=== PATIENT | male | born 1945 | race Caucasian/White ===

== ENCOUNTER → 2023-08-22 06:16 | Day surgery (SDC) | payer MEDICARE, OTHER, SELFPAY ==
[2023-08-22 07:51] VITALS: BMI 32.8
[2023-08-22 08:07] VITALS: BP 148/90
[2023-08-22 09:50] VITALS: BP 104/65
[2023-08-22 10:00] VITALS: BP 114/74
== END ==
LOC: SDS 06:16
PROVIDERS: ATTENDING PHYSICIAN Internal Medicine Gastroenterology
DX: D12.2 Benign neoplasm of ascending colon (principal); D17.79 Benign lipomatous neoplasm of other sites; K57.30 Diverticulosis of large intestine without perforation or abscess without bleeding; K64.0 First degree hemorrhoids
CPT/HCPCS: 45390; 88305

== ENCOUNTER → 2023-08-29 06:23 | Outpatient (REF) | payer MEDICARE, OTHER, SELFPAY ==
[2023-08-29 09:55] LABS: % Basophils 0.5 % (0-2); % Eosinophils 2.6 % (0-6); % Immature Granulocytes 0.3 % (0-0.5); % Lymphocytes 38.4 % (20.5-51.1); % Monocytes 11.1 % (1.7-9.3); % Neutrophils 47.1 % (42.2-75.2); Absolute Basophils 0.1 10^3/uL (0-0.2); Absolute Eosinophils 0.3 10^3/uL (0-0.7); Absolute Lymphocytes 4.1 10^3/uL (1.2-3.4); Absolute Monocytes 1.2 10^3/uL (0.1-0.6); Hematocrit 34.8 % (39.0-52.0); Hemoglobin 11.3 g/dL (13.0-18.0); Mean Corp Hgb Conc. 32.5 g/dL (33.0-37.0); Mean Corpuscular Hgb 28.8 pg (27.0-31.0); Mean Corpuscular Volume 88.5 fL (80.0-94.0); Mean Platelet Volume 10.9 fL (7.4-10.4); Nucleated Red Blood Cells % 0 % (-); Platelet Count 203 10^3/uL (130-400); Red Blood Cell Count 3.93 10^6/uL (4.70-6.10); Red Cell Dist. Width 15.5 % (11.5-14.5); White Blood Cell Count 10.6 10^3/uL (4.8-10.8)
== END ==
LOC: HWLAB 06:23
PROVIDERS: ATTENDING PHYSICIAN Internal Medicine Pulmonary Disease; FAMILY PHYSICIAN Internal Medicine
DX: J67.9 Hypersensitivity pneumonitis due to unspecified organic dust (principal); Z51.81 Encounter for therapeutic drug level monitoring
CPT/HCPCS: 36415; 85025

== ENCOUNTER → 2023-09-01 07:00 | Outpatient (REF) | payer MEDICARE, OTHER, SELFPAY ==
[2023-09-01 09:56] LABS: ALT (SGPT) 29 U/L (0-50); AST (SGOT) 33 U/L (17-59); Albumin 3.8 g/dl (3.5-5.0); Alkaline Phosphatase 109 U/L (38-126); Direct Bilirubin 0.4 mg/dl (0.0-0.4); Total Bilirubin 0.8 mg/dl (0.2-1.3); Total Protein 6.9 g/dl (6.3-8.2)
== END ==
LOC: HWLAB 07:00
PROVIDERS: ATTENDING PHYSICIAN Internal Medicine Pulmonary Disease; FAMILY PHYSICIAN Internal Medicine
DX: Z51.81 Encounter for therapeutic drug level monitoring (principal)
CPT/HCPCS: 36415; 80076

== ENCOUNTER → 2023-11-27 09:30 | Outpatient (REF) | payer MEDICARE, OTHER, SELFPAY ==
[2023-11-27 10:03] LABS: % Basophils 0.3 % (0-2); % Eosinophils 1.7 % (0-6); % Immature Granulocytes 0.5 % (0-0.5); % Lymphocytes 25.3 % (20.5-51.1); % Monocytes 10.1 % (1.7-9.3); % Neutrophils 62.1 % (42.2-75.2); Absolute Eosinophils 0.2 10^3/uL (0-0.7); Absolute Immature Granulocytes 0.1 10^3/uL (0-0.05); Absolute Lymphocytes 2.8 10^3/uL (1.2-3.4); Absolute Monocytes 1.1 10^3/uL (0.1-0.6); Absolute Neutrophils 6.8 10^3/uL (1.4-6.5); Hematocrit 38.8 % (39.0-52.0); Hemoglobin 12.7 g/dL (13.0-18.0); Mean Corp Hgb Conc. 32.7 g/dL (33.0-37.0); Mean Corpuscular Volume 91.5 fL (80.0-94.0); Mean Platelet Volume 10.6 fL (7.4-10.4); Nucleated Red Blood Cells % 0 % (-); Platelet Count 177 10^3/uL (130-400); Red Blood Cell Count 4.24 10^6/uL (4.70-6.10); Red Cell Dist. Width 13.8 % (11.5-14.5); White Blood Cell Count 10.9 10^3/uL (4.8-10.8)
[2023-11-27 12:04] LABS: ALT (SGPT) 25 U/L (0-50); AST (SGOT) 35 U/L (17-59); Alkaline Phosphatase 107 U/L (38-126); Blood Urea Nitrogen 25 mg/dl (9-20); Calcium 9.2 mg/dl (8.4-10.2); Carbon Dioxide 32 mmol/L (22-30); Chloride 99 mmol/L (98-107); Glucose 86 mg/dl (70-99); HDL Cholesterol 50 mg/dl; LDL Cholesterol, Calculated 102 mg/dl; Potassium 4.3 mmol/L (3.5-5.1); Sodium 138 mmol/L (135-145); Total Bilirubin 0.9 mg/dl (0.2-1.3); Total Cholesterol 172 mg/dl (50-199); Total Protein 6.9 g/dl (6.3-8.2); Triglyceride 100 mg/dl (10-149); Very Low Density Lipoprotein 20 mg/dl (0-30); eGFR > 60.00
[2023-11-27 12:30] LABS: PSA, Total - Screen 3.15 ng/ml (0.0-4.0); TSH Reflex To Free T4 3.58 uIU/ml (0.47-4.68)
== END ==
LOC: REG 09:30
PROVIDERS: ATTENDING PHYSICIAN Internal Medicine
DX: N40.1 Benign prostatic hyperplasia with lower urinary tract symptoms (principal); E03.9 Hypothyroidism, unspecified; E78.5 Hyperlipidemia, unspecified; I10 Essential (primary) hypertension; Z12.5 Encounter for screening for malignant neoplasm of prostate
CPT/HCPCS: 36415; 80053; 80061; 84443; 85025; G0103

== ENCOUNTER 2024-01-22 20:55 | Inpatient (IN) | payer MEDICARE, OTHER, SELFPAY ==
[2024-01-22] VITALS (8 sets, daily range): BP systolic 102–156; BP diastolic 88–97
[2024-01-22 17:33] LABS: % Basophils 0.3 % (0-2); % Eosinophils 0.7 % (0-6); % Immature Granulocytes 0.4 % (0-0.5); % Lymphocytes 22.4 % (20.5-51.1); % Monocytes 7.9 % (1.7-9.3); % Neutrophils 68.3 % (42.2-75.2); Absolute Eosinophils 0.1 10^3/uL (0-0.7); Absolute Immature Granulocytes 0.1 10^3/uL (0-0.05); Absolute Lymphocytes 2.5 10^3/uL (1.2-3.4); Absolute Monocytes 0.9 10^3/uL (0.1-0.6); Absolute Neutrophils 7.6 10^3/uL (1.4-6.5); Hematocrit 37.5 % (39.0-52.0); Hemoglobin 12.5 g/dL (13.0-18.0); Mean Corp Hgb Conc. 33.3 g/dL (33.0-37.0); Mean Corpuscular Hgb 29.7 pg (27.0-31.0); Mean Corpuscular Volume 89.1 fL (80.0-94.0); Mean Platelet Volume 10.6 fL (7.4-10.4); Nucleated Red Blood Cells % 0 % (-); Platelet Count 173 10^3/uL (130-400); Red Blood Cell Count 4.21 10^6/uL (4.70-6.10); Red Cell Dist. Width 13.7 % (11.5-14.5); White Blood Cell Count 11.1 10^3/uL (4.8-10.8)
--- NOTE | 2024-01-22 17:46 | ED.GENMED ---
History of Present Illness
General
Chief Complaint: Rectal Bleeding
Source: patient
Exam Limitations: none
Time Seen by Provider: 01/22/24 17:33
History of Present Illness
History of Present Illness:
See MDM
Past History
Past History
ED Past Medical History: HTN, Hypothyroidism and Other (Gout, Interstitial lung disease)
ED Past Surgical History: Appendectomy, Cholecystectomy and Other (Bilateral cataracts)
Social History
Tobacco: Non-smoker
Alcohol: None
Personal:
Living: with family
Employment: Employed
Family History
Family History: Hypertension
Phy Exam
Physical Exam
Physical Exam:
See MDM
Course
Orders/Labs/Results
Orders:
Orders
01/22/24 17:22
Type+Screen Urgent
Complete Blood Count/With Diff Urgent
Comprehensive Metabolic Panel Urgent
01/22/24 17:46
CT Angio Abd/Pelvis w/wo IV [CT Abd/pelvis Angio W/wo Iv] Urgent
Comment:
Reason For Exam: brisk rectal bleeding
01/22/24 19:17
PTT Urgent
Prothrombin Time Urgent
Tranexamic Acid 1000 mg/100 ml [Tranexamic Acid] 1,000 mg in 100 ml IV ONCE
Abnormal Lab Results
01/22/24 01/22/24
17:22 19:17
WBC 11.1 H 10^3/uL
(4.8-10.8)
RBC 4.21 L 10^6/uL
(4.70-6.10)
Hgb 12.5 L g/dL
(13.0-18.0)
Hct 37.5 L %
(39.0-52.0)
MPV 10.6 H fL
(7.4-10.4)
Abs Immat Gran (auto) 0.1 H 10^3/uL
(0-0.05)
Absolute Neuts (auto) 7.6 H 10^3/uL
(1.4-6.5)
Absolute Monos (auto) 0.9 H 10^3/uL
(0.1-0.6)
PT 15.7 H Sec
(11.4-14.6)
BUN 24 H mg/dl
(9-20)
Glucose 106 H mg/dl
(70-99)
01/22/24 17:22
01/22/24 17:22
Vital Signs
Initial and Last Documented VS:
Initial Vital Signs
Pulse Resp BP Pulse Ox
102 28 152/89 96
01/22/24 17:13 01/22/24 17:13 01/22/24 17:13 01/22/24 17:13
Last Documented Vital Signs
Temp Pulse Resp BP Pulse Ox
98.2 F 95 31 156/95 99
01/22/24 17:30 01/22/24 19:31 01/22/24 19:31 01/22/24 19:31 01/22/24 19:31
MDM/Problems Addressed
Differential Diagnosis Includes:
HPI and MDM Narrative:
78-year-old male presenting for evaluation of bright red rectal bleeding. Patient had developed approximately 6 episodes of bright red rectal bleeding. At this point, patient is noticing just blood. He denies being on blood thinners. He denies
abdominal pain. Patient had a history of bleeding in the past and it was believed to be hemorrhoids. He started using the hemorrhoid cream with no relief
On exam, patient has a soft and nontender abdomen. The external rectal exam within normal limits. Patient did have an episode of rectal bleeding when he came back to the room and he did show me in the bathroom.
Given the multiple episodes of bleeding, will obtain CTA A/P. Will ultimately admit
Physical exam
General: Well appearing and non-toxic
HEENT: protecting airway
Neck: appears supple
CV: No evidence of cyanosis
Resp: No accessory muscle use
Abd: Non-distended. Soft and nontender
Rectal: External exam within normal limits
Extremities: No deformities
Neuro: alert
Psych: Normal affect
Skin: Intact
Problems Addressed including Acute and Chronic Conditions affecting care:
1. Bright red rectal bleeding
Acuity: acute
Prognosis: stable
Details: Patient is on blood thinners. Hemoglobin stable. Will obtain CTA to rule out any active bleeding versus diverticulosis
Updates
644 PM radiology indicating acute hemorrhage in the proximal sigmoid
6:50 PM interventional radiology made aware
Patient prophylactically signed consent for blood transfusion if needed
Patient given 1 g of IV tranexamic acid
7:20 PM IR did evaluate CT and there is no plan for intervention. At this time, GI made aware
Differential Diagnosis (but not limited to): Diverticulosis, colitis, neoplasm
Testing considered: Stool culture
Drug therapy (if applicable): OTC meds, please see d/c instruction regarding Rx drugs
Amount and/or Complexity of Data Reviewed
Clinical info obtained from: Patient
External data reviewed: N/A
Labs I independently reviewed (but not limited to): Hemoglobin stable
Radiology: The CT scan was personally and independently reviewed. In addition, official CT report reviewed.
Pulse Ox: not hypoxic
EKG independently reviewed: N/A
Color Maker Formulator: N/A
Critical Care: The high probability of a clinically significant, sudden or life threatening deterioration of the gastroenterology system(s) required my full and direct attention, intervention and personal management. The aggregate critical care time
was 33 minutes. This time is in addition to time spent performing reported procedures but includes the following:
[x] Data Review and interpretation
[x] Patient assessment and monitoring of vital signs
[x] Documentation
[x] Medication orders and management
Risk of Complication:
Social Determinants of health: Good social support
Discussed with other providers: Interventional radiologist, gastroenterology, hospitalist
Escalation of Care includes Admit/Obs: Given the diverticulosis with hemorrhage, will admit
Occasional wrong word or 'sound a like' substitutions may have occurred due to the inherent limitations of voice recognition software. Read the chart carefully and recognize, using context, where substitutions have occurred.
*Critical Care Note
Total Time (30-74mins, 75-104mins- exclusive of procedures): 33 min
ED Attending Note
-
Portions of this chart may have been created with voice recognition software.� Occasional wrong word or��sound alike� substitutions may have occurred due to the inherent limitations of voice recognition software.
Discharge Plan
Departure
Patient Disposition: Admit
Date of Disposition: 01/22/24
Time of Disposition: 19:44
Admit to: Telemetry
Presentation/result/management discussed w/ accepting MD/DO: Hospitalist
Discharge Problem:
Diverticulosis of colon with hemorrhage
Prescriptions:
No Action
allopurinol 100 MG tablet
100 mg PO DAILY
eplerenone [Inspra] 50 MG tablet
50 mg PO BID
acetaminophen [Tylenol] 325 mg Tablet
650 mg PO Q6H PRN (Reason: mild pain)
therapeutic multivitamin Tablet
1 tab PO DAILY
levothyroxine 25 mcg Tablet
25 mcg PO DAILY
furosemide 20 mg Tablet
20 mg PO DAILY
finasteride 5 mg Tablet
5 mg PO DAILY
ezetimibe 10 mg Tablet
10 mg PO DAILY
coenzyme Q10 [CoQ-10] 100 mg Capsule
100 mg PO DAILY
cholecalciferol (vitamin D3) 50 mcg (2,000 unit) Tablet
50 mcg PO DAILY
vitamin K2 100 mcg Capsule
100 mcg PO DAILY
L-Methylfolate
400 mcg PO DAILY
aspirin 81 mg Tablet,Delayed Release (Dr/Ec)
81 mg PO DAILY
terazosin 2 mg Capsule
2 mg PO HS
vitamin B complex Tablet
1 tab PO DAILY
Ofev 100 mg Capsule
100 mg PO Q12H
hydrocortisone [Procto-Med HC] 2.5 % cream with perineal applicator
1 applic [place] DAILYPRN PRN (Reason: hemorrhoids)
Referrals:
Estephania Saldaña MD [Family Provider] -
Interventions
Interventions:
*Risk Screen - Suicide Last Done: 01/22/24 17:20
*General Assessment Last Done: 01/22/24 17:20
*Neglect/Abuse Screening Last Done: 01/22/24 17:20
ED- Fall Risk Assessment Last Done: 01/22/24 17:59
*ED COVID-19 Vaccine History Last Done: 01/22/24 17:20
QB-Iraeyr-Pnrlldlpal Assessment Last Done: 01/22/24 17:30
ED- Cardiac Assessment Last Done: 01/22/24 17:30
ED- Pulmonary Assessment Last Done: 01/22/24 17:30
Discharge Date and Time
Print Language: [place]
[2024-01-22 17:50] LABS: ALT (SGPT) 26 U/L (0-50); AST (SGOT) 36 U/L (17-59); Albumin 3.8 g/dl (3.5-5.0); Alkaline Phosphatase 103 U/L (38-126); Blood Urea Nitrogen 24 mg/dl (9-20); Calcium 8.8 mg/dl (8.4-10.2); Carbon Dioxide 25 mmol/L (22-30); Chloride 103 mmol/L (98-107); Glucose 106 mg/dl (70-99); Potassium 4.1 mmol/L (3.5-5.1); Sodium 143 mmol/L (135-145); Total Bilirubin 0.8 mg/dl (0.2-1.3); Total Protein 6.6 g/dl (6.3-8.2); eGFR > 60.00
[2024-01-22] MEDS: TRANEXAMIC ACID 100 IV (19:20)
[2024-01-22 19:32] LABS: INR 1.24; PT 15.7 Sec (11.4-14.6)
[2024-01-22 19:33] LABS: APTT 31.9 Sec (23.4-35.0)
--- NOTE | 2024-01-22 20:04 | HPS.HSE ---
Family Physician
-
Family Physician: Estephania Saldaña
Chief Complaint
-
rectal bleeding
History of Present Illness
Mr. Eyad Pires is a 78 yo man with hx ILD, pulmonary hypertension and chronic hypoxemia, HTN, hypothyroidism presents to the ER with rectal bleeding - bright red blood.
Bleeding started this morning. He had 6 episodes at home and 3 here in the ER, going at least once per hour. No abdominal pain. No nausea/vomiting. He had a similar episode one year ago 2022 s/p colonoscopy with e/o past bleeding from
diverticular opening in sigmoid colon.
No chest pain or shortness of breath.
He is on chronic O2 for ILD baseline 6L (4 when sleeping and 8 with exertion).
Medical History
Past Medical History
Past Medical History: Reports Other
Additional Past Medical History:
ILD
Pulmonary Hypertension
Chronic Hypoxemic Respiratory Failure
Hypertension
Hypothyroidism
BPH
Past Surgical History: Reports Other
Additional Past Surgical History:
Appendectomy
Cholecystectomy
Cataracts
Prostate Biopsy
Social History
Tobacco: Non-smoker
Alcohol: None
Drug: None
Personal:
Living: With Family
Family History
Family History: Not pertinent
Allergies / Home Medications
Allergies reflects when Allergies were last updated in [employer].
Home Medications with original date entered in [employer]
Allergy/Medication List:
Allergies
Allergy/AdvReac Type Severity Reaction Status Date / Time
Sulfa (Sulfonamide Allergy Rash Verified 08/22/23 08:03
Antibiotics)
sulfamethoxazole Allergy Unknown Verified 08/22/23 08:03
trimethoprim Allergy Unknown Verified 08/22/23 08:03
Home Medications
allopurinol 100 mg tablet 100 mg PO DAILY Gout 05/11/11
eplerenone 50 mg tablet (Inspra) 50 mg PO BID Blood Pressure 05/11/11
L-Methylfolate 400 mcg PO DAILY Supplement 04/23/23
acetaminophen 325 mg tablet (Tylenol) 650 mg PO Q6H PRN mild pain 04/23/23
cholecalciferol (vitamin D3) 50 mcg (2,000 unit) tablet 50 mcg PO DAILY Supplement 04/23/23
coenzyme Q10 100 mg capsule (CoQ-10) 100 mg PO DAILY Supplement 04/23/23
ezetimibe 10 mg tablet 10 mg PO DAILY High Cholesterol 04/23/23
finasteride 5 mg tablet 5 mg PO DAILY prostate issue 04/23/23
furosemide 20 mg tablet 20 mg PO DAILY Fluid Retention/Swelling 04/23/23
levothyroxine 25 mcg tablet 25 mcg PO DAILY Thyroid 04/23/23
therapeutic multivitamin 1 tab PO DAILY Supplement 04/23/23
vitamin K2 100 mcg capsule 100 mcg PO DAILY Supplement 04/23/23
aspirin 81 mg tablet,delayed release 81 mg PO DAILY 01/22/24
hydrocortisone 2.5 % topical cream with perineal applicator (Procto-Med HC) 1 applic IN DAILYPRN PRN hemorrhoids 01/22/24
nintedanib 100 mg capsule (Ofev) 100 mg PO Q12H 01/22/24
terazosin 2 mg capsule 2 mg PO HS 01/22/24
vitamin B complex 1 tab PO DAILY 01/22/24
Review of Systems
-
History Source: Patient
A 12 point ROS was completed and negative except as noted: Yes
Physical Exam
Vital Signs
Vital Signs
Temp Pulse Resp BP Pulse Ox
98.2 F 96 35 156/95 98
01/22/24 17:30 01/22/24 19:45 01/22/24 19:45 01/22/24 19:31 01/22/24 19:45
Physical Exam
General: No Apparent Distress
Respiratory: Rales
Cardiac: S1/S2 and Regular Rhythm
GI: Soft and Non Tender
Musculoskeletal: No Edema
Skin: Warm and Dry; No Rash
Neuro: AO x 3
Psych: Calm
Laboratory Results
-
01/22/24 17:22
01/22/24 17:22
Laboratory Results
PT 15.7 Sec (11.4-14.6) H 01/22/24 19:17
INR 1.24 01/22/24 19:17
APTT 31.9 Sec (23.4-35.0) 01/22/24 19:17
Total Bilirubin 0.8 mg/dl (0.2-1.3) 01/22/24 17:22
AST 36 U/L (17-59) 01/22/24:
ALT 26 U/L (0-50) 01/22/24 17:22
Alkaline Phosphatase 103 U/L (38-126) 01/22/24 17:22
Data Reviewed
-
Diagnostic Radiology: Report Reviewed by me
Lab Data: Labs Reviewed by me
Impression/Plan
-
Mr. Eyad Pires is a 78 yo man with hx ILD, pulmonary hypertension and chronic hypoxemia, HTN, hypothyroidism presents to the ER with rectal bleeding.
Triage VS: T 98.2, P 102, RR 28, BP 152/89, SpO2 96%
LABS: WBC 11.1, Hg 12.5, PLT 173, Na 143, K+ 4.1, BUN 24, Cr 1.1, Glucose 106, liver enzymes WNL
Abdomen/Pelvis CT
IMPRESSION:
1). There is acute gastrointestinal hemorrhage in the proximal sigmoid colon
2). Diverticuli are present throughout the colon with no CT evidence of diverticulitis
3). Atherosclerosis.
4). Moderately extensive subpleural interstitial fibrosis at both lung bases.
5). Prostatomegaly
6). Bilateral renal cysts
7). Cholecystectomy
8). 2.5 cm umbilical hernia which does not contain bowel
MAR: Tranexamic acid
Acute lower GI Bleed with CTA positive for acute hemorrhage in proximal sigmoid colon
-case discussed with GI and IR and plan is for embolization this evening
-keep NPO
-admit to IMU post-op
-repeat Hg now and trend q6 hours; transfuse PRN
-hold HEARING SPECIALIST asa, lasix, eplerenone
Pulmonary Hypertension
ILD
Chronic Hypoxic Respiratory Failure on 6L
-patient is on Ofev PO q 12H at home
Hypothyroidism
-HEARING SPECIALIST Synthroid
BPH
-HEARING SPECIALIST Finasteride
-HEARING SPECIALIST Terazosin
DVT PPx SCD
FULL CODE
76 minutes spent on patient care
[2024-01-22 21:03] LABS: Hemoglobin 11.3 g/dL (13.0-18.0)
--- NOTE | 2024-01-22 23:12 | W.PN.UPDATE ---
Update Note
Progress Note Update
Procedure: BEBA arteriogram
- BEBA arteriogram performed with attention paid to the descending and sigmoid based on CTA findings
- Good image quality; neg for active bleeding
- Pt HDS throughout, slightly hypertensive.
- 5F Mynx closure device used.
- Pt tolerate well. updated.
[2024-01-23] VITALS (32 sets, daily range): BP systolic 98–149; BP diastolic 62–89; PULSE 86–126
[2024-01-23] MEDS: NSS 1000 IV ×2 (00:22→12:36)
--- NOTE | 2024-01-23 00:29 | PTCARENOTE ---
Received patient from IR, got report via RN. Pt post arteriogram through the right femoral artery. No signs of bleeding. Pt denies any pain at this time. Surgical dressing clean, dry, and intact. Pulses present upon palpation bilateral pedal. AAOx3,
calm, and pleasant. Pt is to be lying flat for 3 hours. Pt has call burrell within reach, rings appropriately.
[2024-01-23 04:55] LABS: Hematocrit 29.3 % (39.0-52.0); Hemoglobin 9.9 g/dL (13.0-18.0); Mean Corp Hgb Conc. 33.8 g/dL (33.0-37.0); Mean Corpuscular Hgb 31.1 pg (27.0-31.0); Mean Corpuscular Volume 92.1 fL (80.0-94.0); Platelet Count 144 10^3/uL (130-400); Red Blood Cell Count 3.18 10^6/uL (4.70-6.10); Red Cell Dist. Width 13.5 % (11.5-14.5); White Blood Cell Count 9.6 10^3/uL (4.8-10.8)
[2024-01-23 05:21] LABS: Blood Urea Nitrogen 23 mg/dl (9-20); Calcium 8.5 mg/dl (8.4-10.2); Carbon Dioxide 25 mmol/L (22-30); Chloride 106 mmol/L (98-107); Estimated Creatinine Clearance 76 ml/min; Glucose 97 mg/dl (70-99); Potassium 4.1 mmol/L (3.5-5.1); Sodium 142 mmol/L (135-145); eGFR > 60.00
[2024-01-23] MEDS: SYNTHROID 25 MCG PO (05:30)
[2024-01-23 06:09] LABS: Hepatitis C Antibody Negative (Negative)
[2024-01-23] MEDS: ZYLOPRIM 100 MG PO (08:12)
--- NOTE | 2024-01-23 09:33 | W.PN.GENERIC ---
Assessment / Plan
-
78 yo male with LGIB and negative arteriogram in IR yesterday. One episode of GI bleed since arteriogram yesterday
Continue to trend H&H
I spent 40 minutes reviewing results of the procedure and expected outcomes with the patient, reviewing medical records, laboratory studies and pertinent imaging
Physician Progress Note
Subjective
This is a 78 yo male with PMHx significant for ILD, pulmonary hypertension and chronic hypoxemia on chronic home O2 6L, HTN, and hypothyroidism who noted he started with rectal bleeding yesterday morning. He had multiple episodes at home before
coming to the ER. He had 3 episodes in the ER. He has a history of GI bleed last April and had a colonoscopy. He underwent IR arteriogram yesterday without active bleed identified. He feels well today. He rport one episode of rectal bleding
this morning but not as bad as yesterday. He denies abdominal pain, nausea, vomiting, chest pain, palpitations or SOB
Past Medical History:
ILD, Pulmonary Hypertension, O2 dependent Chronic Hypoxemic Respiratory Failure, Hypertension, Hypothyroidism, BPH
Past Surgical History:
Appendectomy, Cholecystectomy, Cataracts, Prostate Biopsy
Social History
Tobacco: Non-smoker
Alcohol: Denies
Personal: and lives with his wifey
Allergies
Allergy/AdvReac Type Severity Reaction Status Date / Time
Sulfa (Sulfonamide Allergy Rash Verified 08/22/23 08:03
Antibiotics)
sulfamethoxazole Allergy Unknown Verified 08/22/23 08:03
trimethoprim Allergy Unknown Verified 08/22/23 08:03
Home Medications
allopurinol 100 mg tablet 100 mg PO DAILY, eplerenone 50 mg tablet (Inspra) 50 mg PO BID, L-Methylfolate 400 mcg PO DAILY, acetaminophen 325 mg tablet (Tylenol) 650 mg PO Q6H PRN, cholecalciferol (vitamin D3) 50 mcg (2,000 unit) tablet 50 mcg PO
DAILY, coenzyme Q10 100 mg capsule (CoQ-10) 100 mg PO DAILY Supplement, ezetimibe 10 mg tablet 10 mg PO DAILY, finasteride 5 mg tablet 5 mg PO DAILY, furosemide 20 mg tablet 20 mg PO DAILY, levothyroxine 25 mcg tablet 25 mcg PO DAILY, therapeutic
multivitamin 1 tab PO DAILY, vitamin K2 100 mcg capsule 100 mcg PO DAILY, aspirin 81 mg tablet,delayed release 81 mg PO DAILY, hydrocortisone 2.5 % topical cream with perineal applicator (Procto-Med HC) 1 applic MS, nintedanib 100 mg capsule
(Ofev) 100 mg PO Q12H, terazosin 2 mg capsule 2 mg PO HS, vitamin B complex 1 tab PO DAILY 01/22/24
Objective
Vital Signs
Temp Pulse Resp BP Pulse Ox
97.9 F 114 20 98/62 99
01/23/24 07:55 01/23/24 07:45 01/23/24 07:45 01/23/24 07:38 01/23/24 01:31
Lab Results
01/23/24 04:30
This is a WNWD 78 yo male in NAD lying in bed. Color is good. Skin is WD. Neck is supple. Heart is regular. Lungs are CTA. Abdomen is soft, round, NT with bowel sounds present. Right groin dressing CDI. No hematoma or pulsatile mass.
Palpable inguinal and pedal pulses. No CCE.
--- NOTE | 2024-01-23 09:48 | CON.GI ---
Consultation
-
Date/Time Consultation Requested: 01/22/2024, 20:40
Date/Time Consultation Performed: 01/23/2024, 9:45 AM
Requesting Provider: Dr. Vale Hernandez
Performing Provider: Dr. Raciel Bear
Reason for Consultation: GI Bleed
Medical History
Chief Complaint / HPI
Chief Complaint: Rectal bleeding
History of Present Illness:
Mr. Pires is a 78 y.o male with past medical history of HTN, hypothyroidism, pulmonary HTN, ILD, chronic hypoxemic respiratory failure, hx of CCY, adenomatous colon polyps, and hx of prior diverticular GI bleeding (04/2023) who presented to the
ED with hematochezia.
Patient states he was in his USOH until yesterday morning when he began to experience several episodes (up to 7 or 8) of large volume, painless, bright red blood and clots mixed with stool. Denies any abdominal discomfort, nausea or vomiting. Notes
very similar symptoms like this in the past back in April 2023 where he was admitted at and underwent a colonoscopy at that time which revealed diverticulosis in the left colon, transverse colon and hepatic flexure with old blood in the
sigmoid colon and also incidentally found to have a large colon adenomatous polyp in the proximal R colon (s/p eventual repeat colonoscopy with EMR 08/2023). Otherwise, he denies any further episodes of bleeding since that time. He is on daily ASA
81, but no other NSAIDs, antiplatelets or anticoagulants. Denies any symptoms of symptomatic anemia while at home- no worsening SOB, chest pain or lightheadedness. Given his ongoing episodes of painless hematochezia, he came to the ED for further
evaluation.
Recent Pertinent GI Studies:
Colonoscopy (for colon polyp) 08/22/2023- Impression:
- Hemorrhoids found on perianal exam.
- The examined portion of the ileum was normal.
- Medium-sized lipoma in the proximal ascending colon.
- One 17 mm polyp in the proximal ascending colon, removed with mucosal resection en bloc. Resected and retrieved (path with SSL). Treated with argon plasma coagulation (APC).
- Diverticulosis in the sigmoid colon, in the descending colon, at the hepatic flexure and in the ascending colon.
- Internal hemorrhoids.
- Mucosal resection was performed. Resection and retrieval were complete.
Colonoscopy (for rectal bleeding) 04/25/2023- Impression:
- Preparation of the colon was fair.
- Tortuous colon.
- One 15 to 20 mm polyp in the ascending colon. Biopsied (path w/ sessile serrated lesion)
- Moderate diverticulosis in the sigmoid colon, in the descending colon, at the splenic flexure, in the transverse colon and at the hepatic flexure. There was evidence of past bleeding from the diverticular opening.
- Internal hemorrhoids.
In the ED, patient was afebrile and HD-stable. Labs notable for BUN 24, Oxide Furnace Tender 1.1, nml LFTs, Hgb 12.5 and plts 173. CTA Abd/pelvis 01/21 (+) for acute GI hemorrhage in the proximal sigmoid colon and laguerre-diverticulosis without findings to suggest
diverticulitis along with other incidental findings. Had three additional episodes of painless hematochezia while in ED.
Taken for IR Angiography on 01/21 with (-) BEBA arteriogram without any active extravasation, no embolization performed.
Past Medical History
Past Medical History: Other (ILD, pulmonary HTN, chronic hypoxemic respiratory failure (on home O2), diverticular bleeds, adenomatous colon polyps, HTN, hypothyroidism, BPH)
Past Surgical History: Other (Appendectomy, CCY, cataracts, prostate biopsy)
Social History
Tobacco: Non-Smoker
Alcohol: None
Drug: None
Personal:
Family History
Family History: Other (Family hx of CRC (in father))
Allergies / Home Medications
Allergy/AdvReac Type Severity Reaction Status Date / Time
Sulfa (Sulfonamide Allergy Rash-'years Verified 01/22/24 21:35
Antibiotics) ago'
sulfamethoxazole Allergy Unknown Verified 08/22/23 08:03
trimethoprim Allergy 'patient Verified 01/22/24 21:35
denies'
�Medication �Instructions �Recorded
allopurinol 100 mg tablet 100 mg PO DAILY Gout 05/11/11
eplerenone 50 mg tablet (Inspra) 50 mg PO BID Blood Pressure 05/11/11
L-Methylfolate 400 mcg PO DAILY Supplement 04/23/23
acetaminophen 325 mg tablet 650 mg PO Q6H PRN mild pain 04/23/23
(Tylenol)
cholecalciferol (vitamin D3) 50 50 mcg PO DAILY Supplement 04/23/23
mcg (2,000 unit) tablet
coenzyme Q10 100 mg capsule 100 mg PO DAILY Supplement 04/23/23
(CoQ-10)
ezetimibe 10 mg tablet 10 mg PO DAILY High Cholesterol 04/23/23
finasteride 5 mg tablet 5 mg PO DAILY prostate issue 04/23/23
furosemide 20 mg tablet 20 mg PO DAILY Fluid 04/23/23
Retention/Swelling
levothyroxine 25 mcg tablet 25 mcg PO DAILY Thyroid 04/23/23
therapeutic multivitamin 1 tab PO DAILY Supplement 04/23/23
vitamin K2 100 mcg capsule 100 mcg PO DAILY Supplement 04/23/23
aspirin 81 mg tablet,delayed 81 mg PO DAILY 01/22/24
release
hydrocortisone 2.5 % topical cream 1 applic MA DAILYPRN PRN 01/22/24
with perineal applicator hemorrhoids
(Procto-Med HC)
nintedanib 100 mg capsule (Ofev) 100 mg PO Q12H 01/22/24
terazosin 2 mg capsule 2 mg PO HS 01/22/24
vitamin B complex 1 tab PO DAILY 01/22/24
Review of Systems
-
All other systems: A 12 pt ROS was Negative except as stated above in HPI
Vital Signs
Temp Pulse Resp BP Pulse Ox
97.9 F 114 20 98/62 99
01/23/24 07:55 01/23/24 07:45 01/23/24 07:45 01/23/24 07:38 01/23/24 01:31
Physical Exam
Exam
General: Well Developed, Well Nourished and No Apparent Distress
HEENT: Normocephalic, Anicteric and Moist Mucous Membranes
Respiratory: Clear and Other (Normal WOB on breathing on supplemental O2)
Cardiac: S1/S2 and Regular Rhythm
GI: Soft, Non Tender and Non Distended
Musculoskeletal: No Edema
Skin: Warm
Neuro: Awake, AO x 3 and Nonfocal/Grossly Intact
Psych: Calm
Results
WBC 9.6 10^3/uL (4.8-10.8) 01/23/24 04:30
Hgb 9.9 g/dL (13.0-18.0) L 01/23/24 04:30
Hct 29.3 % (39.0-52.0) L 01/23/24 04:30
MCV 92.1 fL (80.0-94.0) 01/23/24 04:30
Plt Count 144 10^3/uL (130-400) 01/23/24 04:30
Absolute Neuts (auto) 7.6 10^3/uL (1.4-6.5) H 01/22/24 17:22
PT 15.7 Sec (11.4-14.6) H 01/22/24 19:17
INR 1.24 01/22/24 19:17
APTT 31.9 Sec (23.4-35.0) 01/22/24 19:17
Sodium 142 mmol/L (135-145) 01/23/24 04:30
Potassium 4.1 mmol/L (3.5-5.1) 01/23/24 04:30
Chloride 106 mmol/L (98-107) 01/23/24 04:30
Carbon Dioxide 25 mmol/L (22-30) 01/23/24 04:30
BUN 23 mg/dl (9-20) H 01/23/24 04:30
Creatinine 1.0 mg/dL (0.7-1.3) 01/23/24 04:30
Calcium 8.5 mg/dl (8.4-10.2) 01/23/24 04:30
Total Bilirubin 0.8 mg/dl (0.2-1.3) 01/22/24 17:22
AST 36 U/L (17-59) 01/22/24 17:22
ALT 26 U/L (0-50) 01/22/24 17:22
Alkaline Phosphatase 103 U/L (38-126) 01/22/24 17:22
Hepatitis C Antibody Negative (Negative) 01/23/24 04:30
CTA Abd/pelvis 01/21 (+) for acute GI hemorrhage in the proximal sigmoid colon and laguerre-diverticulosis without findings to suggest diverticulitis along with other incidental findings.
Pertinent Prior GI Studies:
Colonoscopy (for colon polyp) 08/22/2023- Impression:
- Hemorrhoids found on perianal exam.
- The examined portion of the ileum was normal.
- Medium-sized lipoma in the proximal ascending colon.
- One 17 mm polyp in the proximal ascending colon, removed with mucosal resection en bloc. Resected and retrieved (path with SSL). Treated with argon plasma coagulation (APC).
- Diverticulosis in the sigmoid colon, in the descending colon, at the hepatic flexure and in the ascending colon.
- Internal hemorrhoids.
- Mucosal resection was performed. Resection and retrieval were complete.
Colonoscopy (for rectal bleeding) 04/25/2023- Impression:
- Preparation of the colon was fair.
- Tortuous colon.
- One 15 to 20 mm polyp in the ascending colon. Biopsied (path w/ sessile serrated lesion)
- Moderate diverticulosis in the sigmoid colon, in the descending colon, at the splenic flexure, in the transverse colon and at the hepatic flexure. There was evidence of past bleeding from the diverticular opening.
- Internal hemorrhoids.
Assessment / Plan
-
Mr. Pires is a 78 y.o male with past medical history of HTN, hypothyroidism, pulmonary HTN, ILD, chronic hypoxemic respiratory failure (on chronic O2), hx of CCY, adenomatous colon polyps, and hx of prior diverticular GI bleeding (04/2023) who
presented to the ED with hematochezia.
#Diverticular Hemorrhage
#(+) CTA in Proximal Sigmoid Colon
#Acute Blood Loss Anemia
#Hx of Prior Diverticular Bleeding (04/2023) #Pandiverticulosis
#Hx of Adenomatous Colon Polyps (s/p EMR 08/2023)#Family Hx of CRC
#ILD #Pulm HTN #Chronic Hypoxemic Respiratory Failure
Impression: Patient presenting with large volume, painless hematochezia found to have acute blood loss anemia and (+) CTA with active GI hemorrhage within proximal sigmoid colon. Most consistent with recurrent sigmoid diverticular bleeding. Last
episode back on 04/2023 where colonoscopy revealed old blood in sigmoid and scattered diverticulosis throughout colon and large polyp in proximal R colon (path with SSL) where he was managed conservatively at that time. Underwent a repeat
colonoscopy later on 08/2023 for EMR of large SSL. Otherwise, no further recurrent episodes of bleeding until this presentation. No other NSAIDs or blood thinners. S/p IR angiography on 01/21 with (-) BEBA arteriogram as without any active
extravasation, thus no embolization performed. Otherwise, remains HD-stable without any further episodes of hematochezia since admission, suspicious for resolving sigmoid diverticular hemorrhage.
Recommendations:
- Okay for CLD
- Trend Hgb with serial CBC, transfuse for goal Hgb > 8.0 given pulmonary hx
- No plans for inpatient colonoscopy at this time given relatively recent colonoscopy (04/2023 and 08/2023) and very low chance of therapeutic intervention for diverticular bleeding
- If recurrent large volume hematochezia, would discuss with IR regarding repeat Angiography rather than repeating CTA (given previous + CTA in [place])
- Okay to continue low dose ASA from GI standpoint
- Avoid all NSAIDs
- Will ultimately need a repeat colonoscopy as an outpatient around 02/2024 for surveillance after EMR of large colon polyp (SSL), will ensure patient has f/u
- Rest of care per primary team
Data Reviewed
-
Radiology: Image Personally Visualized and interpreted and Report Reviewed by me
CT Scan: Image Personally Visualized and interpreted and Report Reviewed by me
Old Records: Reviewed
-
-
Thank you for consultation and allowing me to participate in the patient's care. Please call the asset protection associate GI physician during the after hours with any questions or concerns.
[2024-01-23 10:42] LABS: Hematocrit 27.4 % (39.0-52.0); Hemoglobin 9.2 g/dL (13.0-18.0)
--- NOTE | 2024-01-23 11:37 | PTCARENOTE ---
Assisted pt to the commode. Pt had a moderate sized bloody BM, this was his first BM since arriving from the ER. Pt's Ox3 and appropriate. NSR on tele, + pulses, no edema. Brown PVD legs. Ortho's this AM + but pt did not feel symptomatic. On chronic
O2, currently on 4L NC. Crackles heard 1/[address] way up. Pt urinating small amounts in urinal. R groin site intact. IV sites intact. Repeat H&H drawn.
--- NOTE | 2024-01-23 15:36 | W.PN.HOSP.TC ---
Today's Communication/Plan
-
f/u Hbg level
f/u any further bleeding issues
Diet per GI
Assessment / Plan
Assessment / Plan
1. Lower GI bleed
Acute blood loss anemia
-Patient came into ER for having 6-7 episode of whitney blood per rectum. 2 further episodes in ER as well
-Patient had a CT abdomen pelvis which showed a bleeding vessel and sigmoid colon
-Patient was taken to IRAD for emergent embolization of bleeder, although not able to be visualized in IRAD
-Patient denies of having any previous history of GI bleed issues
-Colonoscopy in the past have shown significant diverticular disease polyps/hemorrhoid
-Currently hemoglobin has trended down to 9.5, continue monitoring and may require blood transfusion if hemoglobin come close to 7
-Maintain a liquid diet or per GI recommendation
-Patient has some tachycardia/periodic Hypotension, continue monitoring in IMU for tonight
2. Chronic hypoxic resp failure
Pulmonary fibrosis/ILD
-on 4-5L NC continuously, requires up to 8 L with exertion
-Patient has been following up with pulmonology at [place] for ILD/pulmonary fibrosis. Per patient no systemic condition diagnosed explaining ILD/IPF
Pulmonary Hypertension
Hypothyroidism
BPH
History appendectomy
History of cholecystectomy
DVT PPx SCD
FULL CODE
Total time spent : 51 mins
I personally saw and examined the patient.
I have reviewed all diagnostic interpretations and treatment plans as written.
Time includes patient management by me, time spent at the patients bedside, time to review lab and imaging results, discussing patient care, documentation in the medical record, and time spent with the family or caregiver and discussing care plan
with RN/Consultants.
Anticipated Discharge: 24 - 48 hours
Subjective/Interval History
-
Date of Service: January 23, 2024
No further bleeding per rectum
Denies chest discomfort/shortness of breath/dizziness
Objective Data
-
Labs:
Laboratory Results
01/23/24 01/23/24
04:30 10:36
WBC 9.6
Hgb 9.9 L 9.2 L
Hct 29.3 L 27.4 L
Plt Count 144
Sodium 142
Potassium 4.1
Chloride 106
Carbon Dioxide 25
BUN 23 H
Creatinine 1.0
Glucose 97
Calcium 8.5
Vital Signs:
Vital Signs
Temp Pulse Resp BP Pulse Ox
97.9 F 112 25 98/69 95
01/23/24 07:55 01/23/24 13:00 01/23/24 13:00 01/23/24 12:52 01/23/24 12:23
I&O
01/22/24 01/23/24 01/24/24
06:59 06:59 06:59
Intake Total 398 / 398
Output Total 150 / 150 200 / 200
Balance 248 / 248 -200 / -200
Review of Systems
-
Respiratory: Reports No Symptoms
Cardiac: Reports No Symptoms
Abdomen/GI: Denies Abdominal Pain or Bloody Stools
Physical Exam
-
General: No Apparent Distress and Comfortable
HEENT: Negative Oxygen
Respiratory: Clear to Auscultation
Cardiac: Regular Rhythm and S1/S2; Negative Murmur or Rub
GI: Soft, Nontender, Nondistended and Normal Bowel Sounds
Musculoskeletal: No Edema
Neuro: Awake, Alert, Oriented, No Motor Deficits and Nonfocal/Grossly Intact
Psych: Calm
[2024-01-23 16:52] LABS: Hematocrit 27.8 % (39.0-52.0); Hemoglobin 9.3 g/dL (13.0-18.0)
--- NOTE | 2024-01-23 16:56 | CM ---
Patient with Dx Lower GI bleed, Acute blood loss anemia. O2 2L. Receiving IVF. Clear liquids. H&H Q6H.
Met with patient who resides with his in a 2 story house with 1 DIMITRY.
The patient has been independent in ADLs and ambulation.
The patient's only DME is home O2 - hi flow concentrator that goes up to 10L, uses 4L at rest, 8L with activity, has portable tanks
No prior VN or SNF.
PCP - Estephania Saldaña
Pharmacy - [facility]
Offered VN and patient declined.
No CM d/c needs identified.
Plan home.
[2024-01-23] MEDS: HYTRIN PO (22:08)
[2024-01-23 22:36] LABS: Hemoglobin 8.6 g/dL (13.0-18.0)
[2024-01-24] VITALS (10 sets, daily range): BP systolic 105–147; BP diastolic 73–100
[2024-01-24] MEDS: NSS 1000 IV (01:31)
[2024-01-24] MEDS: SYNTHROID 25 MCG PO (05:16)
[2024-01-24 05:27] LABS: Hematocrit 25.4 % (39.0-52.0); Hemoglobin 8.6 g/dL (13.0-18.0)
--- NOTE | 2024-01-24 05:30 | PTCARENOTE ---
No bloody BMs overnight. H/H stable. Pt offers no complaints. NSR the monitor. Able to turn self while in bed. SCDs on. IVF continue. Voiding via urinal. Call burrell and tray table within reach.
--- NOTE | 2024-01-24 08:02 | W.PN.GI.CBS2 ---
Today's Communication / Plan
-
Please see assessment plan for details.
Assessment / Plan
-
1. GI bleed: With CT positive for sigmoid source, angiogram negative, now relatively stable with stable hemoglobin overnight, only 1 small bowel movement, likely old blood. At this point would continue clear liquids for today therefore main stable
can advance to low residue tonight, and if remains stable possible discharge tomorrow. He knows to follow-up as been advised in the past for repeat colonoscopy within the next 2 months or so of polyp surveillance.
Subjective
Subjective
Date of Service: January 24, 2024
Patient feeling well overnight, only had 1 bowel movement this morning with some blood, none since yesterday, no lightheadedness, dizziness, abdominal pain, fever or chills. Denies any chest pain or shortness of breath.
Objective
Data Reviewed
Laboratory Data:
Laboratory Results
01/23/24 04:30
Laboratory Results
PT 15.7 Sec (11.4-14.6) H 01/22/24 19:17
INR 1.24 01/22/24 19:17
APTT 31.9 Sec (23.4-35.0) 01/22/24 19:17
Total Bilirubin 0.8 mg/dl (0.2-1.3) 01/22/24 17:22
AST 36 U/L (17-59) 01/22/24 17:22
ALT 26 U/L (0-50) 01/22/24 17:22
Alkaline Phosphatase 103 U/L (38-126) 01/22/24 17:22
Vital Signs and I&O:
Vital Signs
Temp Pulse Resp BP Pulse Ox
98.2 F 69 22 139/75 96
01/24/24 07:33 01/24/24 06:15 01/24/24 06:15 01/24/24 06:00 01/24/24 06:15
I&O
01/23/24 01/24/24 01/25/24
06:59 06:59 06:59
Intake Total 398 / 398 776 / 776
Output Total 150 / 150 550 / 550
Balance 248 / 248 226 / 226
Physical Exam
Physical Exam
General: NAD
Abdomen: normal bowel sounds, soft, no tenderness, no masses or bruits, no ascites
[2024-01-24] MEDS: ZYLOPRIM 100 MG PO (09:16)
[2024-01-24 10:24] LABS: Hematocrit 25.5 % (39.0-52.0); Hemoglobin 8.6 g/dL (13.0-18.0)
--- NOTE | 2024-01-24 15:08 | W.PN.HOSP.TC ---
Today's Communication/Plan
-
see note
Assessment / Plan
Assessment / Plan
1. Lower GI bleed
Acute blood loss anemia
-Patient came into ER for having 6-7 episode of whitney blood per rectum. 2 further episodes in ER as well
-Patient had a CT abdomen pelvis which showed a bleeding vessel and sigmoid colon
-Patient was taken to IRAD for emergent embolization of bleeder, although not able to be visualized in IRAD.
-Patient denies of having any previous history of GI bleed issues
-Colonoscopy in the past have shown significant diverticular disease polyps/hemorrhoid
-Hbg down to 8.6. continue monitor.
-Monitor further blood output in stool
2. Chronic hypoxic resp failure
Pulmonary fibrosis/ILD
-on 4-5L NC continuously, requires up to 8 L with exertion
-Patient has been following up with pulmonology at [place] for ILD/pulmonary fibrosis. Per patient no systemic condition diagnosed explaining ILD/IPF
Pulmonary Hypertension
Hypothyroidism
BPH
History appendectomy
History of cholecystectomy
DVT PPx SCD
FULL CODE
Discussed with spouse and all questions answered
Transfer to med/surg
Anticipated Discharge: Within 24 hours
Subjective/Interval History
-
Date of Service: January 24, 2024
some blood in stool
no abd pain/nausea/vomiting
Objective Data
-
Labs:
Laboratory Results
01/24/24 01/24/24
05:05 10:12
Hgb 8.6 L 8.6 L
Hct 25.4 L 25.5 L
Vital Signs:
Vital Signs
Temp Pulse Resp BP Pulse Ox
98.2 F 99 12 142/82 100
01/24/24 11:30 01/24/24 14:45 01/24/24 14:45 01/24/24 14:39 01/24/24 14:45
I&O
01/23/24 01/24/24 01/25/24
06:59 06:59 06:59
Intake Total 398 / 398 776 / 776
Output Total 150 / 150 550 / 550 825 / 825
Balance 248 / 248 226 / 226 -825 / -825
Review of Systems
-
Respiratory: Reports No Symptoms
Cardiac: Reports No Symptoms
Abdomen/GI: Denies Abdominal Pain or Nausea
Physical Exam
-
General: No Apparent Distress and Comfortable
HEENT: Negative Oxygen
Respiratory: Clear to Auscultation
Cardiac: Regular Rhythm and S1/S2; Negative Murmur or Rub
GI: Soft, Nontender, Nondistended and Normal Bowel Sounds
Musculoskeletal: No Edema
Neuro: Awake, Alert, Oriented, No Motor Deficits and Nonfocal/Grossly Intact
Psych: Calm
--- NOTE | 2024-01-24 16:58 | PTCARENOTE ---
Pt presents as assessed, aox3. Several bloody BM's throughout the shift. Sating mid to high 90's on 4-6L NC. Assessment and care as documented. at bedside, updated on plan of care. Able to make needs known, call burrell within reach.
[2024-01-24 18:01] LABS: Hematocrit 23.9 % (39.0-52.0)
[2024-01-24] MEDS: HYTRIN 2 MG PO (20:11)
[2024-01-25] VITALS (11 sets, daily range): BP systolic 127–152; BP diastolic 72–92
[2024-01-25 00:41] LABS: Hematocrit 23.7 % (39.0-52.0); Hemoglobin 8.1 g/dL (13.0-18.0)
--- NOTE | 2024-01-25 03:31 | PTCARENOTE ---
Caring for patient overnight. aaox3, pleasant. no assessment changes. No bm's so far overnight. Most recent hgb was 8.1, will recheck in the morning. VSS. Continues on 6LNC. NSR. Will continue to monitor.
[2024-01-25] MEDS: SYNTHROID 25 MCG PO (05:54)
[2024-01-25 06:06] LABS: Hematocrit 24.2 % (39.0-52.0); Mean Corp Hgb Conc. 33.1 g/dL (33.0-37.0); Mean Corpuscular Hgb 29.9 pg (27.0-31.0); Mean Corpuscular Volume 90.3 fL (80.0-94.0); Mean Platelet Volume 10.3 fL (7.4-10.4); Platelet Count 128 10^3/uL (130-400); Red Blood Cell Count 2.68 10^6/uL (4.70-6.10); Red Cell Dist. Width 13.8 % (11.5-14.5); White Blood Cell Count 9.5 10^3/uL (4.8-10.8)
[2024-01-25 06:22] LABS: Blood Urea Nitrogen 14 mg/dl (9-20); Calcium 8.4 mg/dl (8.4-10.2); Carbon Dioxide 33 mmol/L (22-30); Chloride 105 mmol/L (98-107); Estimated Creatinine Clearance 85 ml/min; Glucose 94 mg/dl (70-99); Potassium 4.1 mmol/L (3.5-5.1); Sodium 139 mmol/L (135-145); eGFR > 60.00
[2024-01-25] MEDS: ZYLOPRIM 100 MG PO (07:58)
--- NOTE | 2024-01-25 08:28 | W.PN.GI.CBS2 ---
Today's Communication / Plan
-
Please assessment plan for details.
Assessment / Plan
-
1. GI bleed: With CT positive for sigmoid source, likely diverticulum, angiogram negative, now relatively stable with stable hemoglobin overnight, only 1 small bowel movement, likely old blood. Given slow drift down we will observe for 24 more
hours, and continue supportive care. If remains stable then is okay to DC tomorrow from a GI standpoint, to follow-up as we discussed already for colonoscopy in the next 1 to 2 months. I discussed with him and his at length.
Subjective
Subjective
Date of Service: January 25, 2024
Patient feeling okay, had several small bowel movements with old blood yesterday, 1 small 1 overnight, no lightheadedness, dizziness, abdominal pain, fever or chills.
Objective
Data Reviewed
Laboratory Data:
Laboratory Results
01/25/24 05:59
01/25/24 05:59
Laboratory Results
PT 15.7 Sec (11.4-14.6) H 01/22/24 19:17
INR 1.24 01/22/24 19:17
APTT 31.9 Sec (23.4-35.0) 01/22/24 19:17
Total Bilirubin 0.8 mg/dl (0.2-1.3) 01/22/24 17:22
AST 36 U/L (17-59) 01/22/24 17:22
ALT 26 U/L (0-50) 01/22/24 17:22
Alkaline Phosphatase 103 U/L (38-126) 01/22/24 17:22
Vital Signs and I&O:
Vital Signs
Temp Pulse Resp BP Pulse Ox
97.9 F 93 23 139/73 95
01/24/24 22:51 01/25/24 06:00 01/25/24 06:00 01/25/24 06:00 01/25/24 06:00
I&O
01/24/24 01/25/24 01/26/24
06:59 06:59 06:59
Intake Total 776 / 776
Output Total 550 / 550 1450 / 1450 100 / 100
Balance 226 / 226 -1450 / -1450 -100 / -100
Physical Exam
Physical Exam
General: NAD
Abdomen: normal bowel sounds, soft, no tenderness, no masses or bruits, no ascites
--- NOTE | 2024-01-25 09:08 | PTCARENOTE ---
Assumed care of pt from night RN, pt AAOx3, no c/o pain. Continues on 6L O2 nc, SPO2 >92%, does desat with ambulation but recovers quickly. Pt did have 1 small bloody BM this AM. Appetite good, diet changed to regular. Will continue to monitor
through shift.
--- NOTE | 2024-01-25 10:37 | W.PN.HOSP.TC ---
Today's Communication/Plan
-
see note
Assessment / Plan
Assessment / Plan
1. Lower GI bleed
Acute blood loss anemia
-Patient came into ER for having 6-7 episode of whitney blood per rectum. 2 further episodes in ER as well
-Patient had a CT abdomen pelvis which showed a bleeding vessel and sigmoid colon
-Patient was taken to IRAD for emergent embolization of bleeder, although not able to be visualized in IRAD.
-Patient denies of having any previous history of GI bleed issues
-Colonoscopy in the past have shown significant diverticular disease polyps/hemorrhoid
-Hbg down to 8 today, some old blood coming out
-Iron panel for morning ordered, provide IV ferlicit for now
-If Hbg trends down further will required PRBC 1 U
-GI evaluated and patient to be monitored overnight
2. Chronic hypoxic resp failure
Pulmonary fibrosis/ILD
-on 4-5L NC continuously, requires up to 8 L with exertion
-Patient has been following up with pulmonology at [place] for ILD/pulmonary fibrosis. Per patient no systemic condition diagnosed explaining ILD/IPF
Pulmonary Hypertension
Hypothyroidism
BPH
History appendectomy
History of cholecystectomy
DVT PPx SCD
FULL CODE
01/23 Discussed with spouse and all questions answered
Transfer to med/surg
Anticipated Discharge: Within 24 hours
Subjective/Interval History
-
Date of Service: January 25, 2024
minimal old blood in stool
no new issues
Objective Data
-
Labs:
Laboratory Results
01/25/24 01/25/24 01/25/24
00:32 05:59 18:00
WBC 9.5 Pending
Hgb 8.1 L 8.0 L Pending
Hct 23.7 L 24.2 L Pending
Plt Count 128 L Pending
Sodium 139
Potassium 4.1
Chloride 105
Carbon Dioxide 33 H
BUN 14
Creatinine 0.9
Glucose 94
Calcium 8.4
Vital Signs:
Vital Signs
Temp Pulse Resp BP Pulse Ox
98.2 F 85 28 139/72 96
01/25/24 07:30 01/25/24 08:01 01/25/24 08:01 01/25/24 08:00 01/25/24 10:04
I&O
01/24/24 01/25/24 01/26/24
06:59 06:59 06:59
Intake Total 776 / 776 100 / 100
Output Total 550 / 550 1450 / 1450 100 / 100
Balance 226 / 226 -1450 / -1450 0 / 0
Review of Systems
-
Respiratory: Reports No Symptoms
Cardiac: Reports No Symptoms
Abdomen/GI: Reports No Symptoms
Physical Exam
-
General: No Apparent Distress and Comfortable
HEENT: Negative Oxygen
Respiratory: Clear to Auscultation
Cardiac: Regular Rhythm and S1/S2; Negative Murmur or Rub
GI: Soft, Nontender, Nondistended and Normal Bowel Sounds
Musculoskeletal: No Edema
Neuro: Awake, Alert, Oriented, No Motor Deficits and Nonfocal/Grossly Intact
Psych: Calm
[2024-01-25 11:33] LABS: Iron 46 ug/dl (49-181)
[2024-01-25] MEDS: FERRLECIT 110 MG IV (13:55)
[2024-01-25 20:09] LABS: Hematocrit 24.9 % (39.0-52.0); Hemoglobin 8.2 g/dL (13.0-18.0); Mean Corp Hgb Conc. 32.9 g/dL (33.0-37.0); Mean Corpuscular Hgb 29.7 pg (27.0-31.0); Mean Corpuscular Volume 90.2 fL (80.0-94.0); Mean Platelet Volume 10.6 fL (7.4-10.4); Platelet Count 152 10^3/uL (130-400); Red Blood Cell Count 2.76 10^6/uL (4.70-6.10); Red Cell Dist. Width 13.9 % (11.5-14.5); White Blood Cell Count 10.6 10^3/uL (4.8-10.8)
--- NOTE | 2024-01-25 20:22 | PTCARENOTE ---
Assumed care of pt at 1900. Pt is A/O x4, pleasant and cooperative with care, sitting on side of bed watching TV, ST with BBB on monitor, HR in 110s. SpO2 97% on 5L midflow, crackles throughout. See nursing shift assessment flowsheet for further
physical assessment details. Repeat CBC done, see lab results.
[2024-01-25] MEDS: HYTRIN 2 MG PO (21:17)
--- NOTE | 2024-01-25 21:47 | PTCARENOTE ---
Pt is transferring to room 321, report called to RN at this time.
[2024-01-26] MEDS: SYNTHROID 25 MCG PO (05:50)
[2024-01-26 06:30] LABS: Hematocrit 23.7 % (39.0-52.0); Hemoglobin 8.1 g/dL (13.0-18.0); Mean Corp Hgb Conc. 34.2 g/dL (33.0-37.0); Mean Corpuscular Hgb 31.6 pg (27.0-31.0); Mean Corpuscular Volume 92.6 fL (80.0-94.0); Mean Platelet Volume 10.5 fL (7.4-10.4); Platelet Count 144 10^3/uL (130-400); Red Blood Cell Count 2.56 10^6/uL (4.70-6.10); Red Cell Dist. Width 13.7 % (11.5-14.5); White Blood Cell Count 10.9 10^3/uL (4.8-10.8)
[2024-01-26 07:23] VITALS: BP 108/62
[2024-01-26] MEDS: ZYLOPRIM 100 MG PO (08:21)
--- NOTE | 2024-01-26 08:39 | W.PN.HOSP.TC ---
Today's Communication/Plan
-
Cleared by GI for discharge today
Assessment / Plan
Assessment / Plan
1. Lower GI bleed
Acute blood loss anemia
-Patient came into ER for having 6-7 episode of whitney blood per rectum. 2 further episodes in ER as well
-Patient had a CT abdomen pelvis which showed a bleeding vessel and sigmoid colon
-Patient was taken to [facility] for emergent embolization of bleeder, although not able to be visualized in [facility].
-Patient denies of having any previous history of GI bleed issues
-Colonoscopy in the past have shown significant diverticular disease polyps/hemorrhoid
-Hemoglobin stable between 8�8.2 for the last 5 days
-Currently getting IV iron, will discharge on oral iron
-No more recurrence of bloody stools, cleared by GI for discharge today
-Follow-up with his usual GI doctor in the office for outpatient colonoscopy
2. Chronic hypoxic resp failure
Pulmonary fibrosis/ILD
-on 4-5L NC continuously, requires up to 8 L with exertion
-Patient has been following up with pulmonology at [facility] for ILD/pulmonary fibrosis. Per patient no systemic condition diagnosed explaining ILD/IPF
Pulmonary Hypertension
Hypothyroidism
BPH
History appendectomy
History of cholecystectomy
DVT PPx SCD
FULL CODE
01/25 updated on phone
Physical Exam
General: No acute distress
HEENT: Normocephalic, Atraumatic, EOMI, MMM
Respiratory: Bibasilar crackles
Cardiac: Normal S1/S2, Regular Rate and Rhythm
GI: Soft, Nontender, Nondistended, Normal Bowel Sounds
Extremities: No Clubbing, Cyanosis, or Edema
Neuro: Nonfocal/Grossly Intact
Psych: Calm, Cooperative
Derm: No Visible lesions
Anticipated Discharge: Today
Subjective/Interval History
-
Date of Service: January 26, 2024
Patient had a brown bowel movement this morning. No fever, no chest pain, no shortness of breath.
Objective Data
-
Labs:
Laboratory Results
01/26/24
06:05
WBC 10.9 H
Hgb 8.1 L
Hct 23.7 L
Plt Count 144
Vital Signs:
Vital Signs
Temp Pulse Resp BP Pulse Ox
98.4 F 80 17 108/62 95
01/26/24 07:23 01/26/24 07:23 01/26/24 07:23 01/26/24 07:23 01/26/24 07:23
I&O
01/25/24 01/26/24 01/27/24
06:59 06:59 06:59
Intake Total 450 / 450
Output Total 1450 / 1450 900 / 900
Balance -1450 / -1450 -450 / -450
--- NOTE | 2024-01-26 09:19 | W.PN.GI.CBS2 ---
Today's Communication / Plan
-
Hgb stable, no further signs of recurrent active bleeding. Expect to continue to pass old blood over 24 hrs, but appears this is resolving. Outpatient GI f/u for a repeat colonoscopy given his polyp history. Okay to d/c from GI standpoint. Rest as
outlined below. GI team will sign-off, call back with questions/concerns.
Assessment / Plan
-
Mr. Pires is a 78 y.o male with past medical history of HTN, hypothyroidism, pulmonary HTN, ILD, chronic hypoxemic respiratory failure (on chronic O2), hx of CCY, adenomatous colon polyps, and hx of prior diverticular GI bleeding (04/2023) who
presented to the ED with hematochezia and found to have (+) CTA in proximal sigmoid colon consistent with diverticular bleed.
#Diverticular Hemorrhage
#(+) CTA in Proximal Sigmoid Colon
#Acute Blood Loss Anemia
#Hx of Prior Diverticular Bleeding (04/2023) #Pandiverticulosis
#Hx of Adenomatous Colon Polyps (s/p EMR 08/2023)#Family Hx of CRC
#ILD #Pulm HTN #Chronic Hypoxemic Respiratory Failure
Impression: Patient presenting with large volume, painless hematochezia found to have acute blood loss anemia and (+) CTA with active GI hemorrhage within proximal sigmoid colon. Most consistent with recurrent sigmoid diverticular bleeding. Last
episode back on 04/2023 where colonoscopy revealed old blood in sigmoid and scattered diverticulosis throughout colon and large polyp in proximal R colon (path with SSL) where he was managed conservatively at that time. Underwent a repeat
colonoscopy later on 08/2023 for EMR of large SSL. Otherwise, no further recurrent episodes of bleeding until this presentation. No other NSAIDs or blood thinners. S/p IR angiography on 01/21 with (-) BEBA arteriogram as without any active
extravasation, thus no embolization performed. Otherwise, remains HD-stable without any further episodes of hematochezia since admission, suspicious for resolving sigmoid diverticular hemorrhage.
Hgb stable without further episodes of hematochezia since admission, only passing small amount of old blood. Hgb unchanged and stable 8.0 -> 8.2 -> 8.1
Recommendations:
- Diet as tolerated
- Recommend outpatient CBC to ensure rising Hgb in 1-2 weeks
- Discussed importance of follow-up for surveillance colonoscopy in the next 1-2 months
- Office previously attempted to schedule, again advised he schedule with our office. He will require Pulm clearance as well given his ILD
- Okay to d/c today from GI standpoint
- Discussed avoidance of all NSAIDs as an outpatient
- Rest of care per primary team
Discussed with primary internal medicine team this AM. GI team will sign-off. Please call back with any questions or concerns.
Subjective
Subjective
Date of Service: January 26, 2024
- No further bloody stools overnight, Hgb stable
Resting comfortably in bed, does admit small amount of old blood with wiping when using the bathroom. Otherwise, no overtly bloody stools or hematochezia over weekend. Continues to deny any abdominal pain, nausea or vomiting. Discussed importance of
follow-up as patient will be due for his next surveillance colonoscopy in February.
Otherwise, repeat labs this AM with stable Hgb 8.2 -> 8.1.
Objective
Data Reviewed
Laboratory Data:
Laboratory Results
01/26/24 06:05
01/25/24 05:59
Laboratory Results
PT 15.7 Sec (11.4-14.6) H 01/22/24 19:17
INR 1.24 01/22/24 19:17
APTT 31.9 Sec (23.4-35.0) 01/22/24 19:17
Total Bilirubin 0.8 mg/dl (0.2-1.3) 01/22/24 17:22
AST 36 U/L (17-59) 01/22/24 17:22
ALT 26 U/L (0-50) 01/22/24 17:22
Alkaline Phosphatase 103 U/L (38-126) 01/22/24 17:22
Vital Signs and I&O:
Vital Signs
Temp Pulse Resp BP Pulse Ox
98.4 F 80 17 108/62 95
01/26/24 07:23 01/26/24 07:23 01/26/24 07:23 01/26/24 07:23 01/26/24 08:47
I&O
01/25/24 01/26/24 01/27/24
06:59 06:59 06:59
Intake Total 450 / 450
Output Total 1450 / 1450 900 / 900
Balance -1450 / -1450 -450 / -450
Physical Exam
Physical Exam
HEENT: Anicteric and Moist mucous membranes
Cardiology: Normal Sinus Rhythm
Pulmonary: Other (Normal WOB on supplemental O2 (on home O2))
GI: Soft, Non Distended and Non Tender
Extremities: No Edema and Warm
Neuro: Non Focal
[2024-01-26] MEDS: LASIX 20 MG PO (09:26)
[2024-01-26] MEDS: PROSCAR 5 MG PO (09:29)
--- NOTE | 2024-01-26 12:33 | W.PN.UPDATE ---
Update Note
Progress Note Update
UPDATE: Spoke with patient's , Simona, extensively this afternoon. Discussed importance of follow-up with his PCP for repeat CBC in 1-2 weeks along with scheduling a colonoscopy as an eventual outpatient with our office. Addressed all questions
and concerns.
--- NOTE | 2024-01-26 12:33 | W.DCSUMMARY ---
Discharge Summary
Discharge Data
Date of Admission: 01/22/24
Date of Discharge: 01/26/24
-
Pending Results: No
Hospital Course
Discharge diagnosis:
Acute lower gastrointestinal bleed
Acute blood loss anemia
Chronic hypoxic respiratory failure
Chronic interstitial lung disease
Pulmonary Hypertension
Hypothyroidism
Consults: GI, interventional radiology
Abd/pelvis CTA:
1). There is acute gastrointestinal hemorrhage in the proximal sigmoid colon
2). Diverticuli are present throughout the colon with no CT evidence of diverticulitis
3). Atherosclerosis.
4). Moderately extensive subpleural interstitial fibrosis at both lung bases.
5). Prostatomegaly
6). Bilateral renal cysts
7). Cholecystectomy
8). 2.5 cm umbilical hernia which does not contain bowel
Procedures:
01/22/2024 BEBA arteriogram
- BEBA arteriogram performed with attention paid to the descending and sigmoid based on CTA findings
- Good image quality; neg for active bleeding
Hospital course:
78-year-old male with past medical history of HTN, hypothyroidism, pulmonary HTN, ILD, chronic hypoxemic respiratory failure, hx of CCY, adenomatous colon polyps, and hx of prior diverticular GI bleeding (04/2023) was admitted for hematochezia.
Patient was seen in conjunction with GI and interventional radiology. Abdominal CTA was concerning for active GI hemorrhage in the proximal sigmoid colon. He underwent BEBA arteriogram on 01/22/2024, which was negative for bleeding.
Patient's hematochezia resolved. His hemoglobin was 12.5 upon admission, and dropped to as low as 8.0. He received IV iron while in the hospital. He will be discharged on oral iron. His hemoglobin was monitored, and remained stable at 8.1 for 5
days. He is medically stable and cleared by GI for discharge. GI has cleared him to resume aspirin upon discharge. He needs to follow-up with GI in the office for colonoscopy. He also needs to follow-up with his PCP in 1 week, and have a CBC
drawn with his PCP at that time.
Disposition: Home self-care
Discharge planning: Required 42 minutes
Discharge Plan
-
Patient Disposition: Home (Routine Discharge)
Discharge Diagnosis/Procedures: Lower gastrointestinal bleed, suspect diverticular, acute blood loss anemia, chronic hypoxic respiratory failure, pulmonary fibrosis
Condition: Fair
Diet: Low Fiber
Activity: As tolerated
Driving Restrictions: As prior to admission
Activity Restrictions/Additional Instructions:
Please follow-up with your usual application dba for colonoscopy.
Your blood pressure in the hospital was intermittently low, we recommend you hold your Inspra for 3 days.
Follow-up with your primary care doctor in 1 week.
Referrals:
Estephania Saldaña MD [Family Provider] - in one week
Prescriptions:
New
ferrous sulfate 325 mg (65 mg iron) tablet
325 mg PO Q OTHER DAY Qty: 30 0RF
Continued
allopurinol 100 MG tablet
100 mg PO DAILY
acetaminophen [Tylenol] 325 mg Tablet
650 mg PO Q6H PRN (Reason: mild pain)
therapeutic multivitamin Tablet
1 tab PO DAILY
levothyroxine 25 mcg Tablet
25 mcg PO DAILY
furosemide 20 mg Tablet
20 mg PO DAILY
finasteride 5 mg Tablet
5 mg PO DAILY
ezetimibe 10 mg Tablet
10 mg PO DAILY
coenzyme Q10 [CoQ-10] 100 mg Capsule
100 mg PO DAILY
cholecalciferol (vitamin D3) 50 mcg (2,000 unit) Tablet
50 mcg PO DAILY
vitamin K2 100 mcg Capsule
100 mcg PO DAILY
L-Methylfolate
400 mcg PO DAILY
aspirin 81 mg Tablet,Delayed Release (Dr/Ec)
81 mg PO DAILY
terazosin 2 mg Capsule
2 mg PO HS
vitamin B complex Tablet
1 tab PO DAILY
Ofev 100 mg Capsule
100 mg PO Q12H
hydrocortisone [Procto-Med HC] 2.5 % cream with perineal applicator
1 applic CA DAILYPRN PRN (Reason: hemorrhoids)
Held
eplerenone [Inspra] 50 MG tablet
50 mg PO BID
Hold Instructions: Resume on 01/29/24.
Discharge Orders:
Discharge Patient (As Directed); Ordered 01/26/24
Ordered By: Christian Doty
Discharge Date and Time
Discharge Date/Time: 01/26/24 17:30
Print Language: CHILEAN
[2024-01-26] MEDS: FERRLECIT 110 MG IV (13:30)
[2024-01-26 15:05] LABS: Ferritin 37.5 ng/ml (17.9-464.0)
[2024-01-26 15:38] VITALS: BP 105/63
--- NOTE | 2024-01-26 16:34 | CM ---
Reviewed chart, patient ready for discharge. Met with patient to review IMM. He signed it and it is now on chart.
Plan: Case management will continue to follow and assist with discharge planning. Home with spouse.
== END 2024-01-26 17:30 | disposition home or self-care (01) | DRG 378 ==
LOC: 3 WEST ACU 20:55
PROVIDERS: Hospitalist; ADMITTING PHYSICIAN Student in an Organized Health Care Education/Training Program; ATTENDING PHYSICIAN Family Medicine; EMERGENCY PHYSICIAN Student in an Organized Health Care Education/Training Program; FAMILY PHYSICIAN Internal Medicine; OTHER PHYSICIAN Student in an Organized Health Care Education/Training Program
DX: K57.31 Diverticulosis of large intestine without perforation or abscess with bleeding (principal); D62 Acute posthemorrhagic anemia; J96.11 Chronic respiratory failure with hypoxia; J84.9 Interstitial pulmonary disease, unspecified; Z99.81 Dependence on supplemental oxygen; I27.20 Pulmonary hypertension, unspecified; I10 Essential (primary) hypertension; E03.9 Hypothyroidism, unspecified
CPT/HCPCS: 36245; 74174; 75726; 76937; 80048; 80053; 82728; 83540; 85014; 85018; 85025; 85027; 85610; 85730; 86803; 86850; 86900; 86901; 96374; 99152; 99153; 99291; C1769; J2916; Q9967

== ENCOUNTER → 2024-02-04 13:34 | Outpatient (REF) | payer MEDICARE, OTHER, SELFPAY ==
[2024-02-04 16:39] LABS: % Basophils 0.4 % (0-2); % Eosinophils 2.3 % (0-6); % Immature Granulocytes 0.7 % (0-0.5); % Lymphocytes 30.4 % (20.5-51.1); % Monocytes 9.5 % (1.7-9.3); % Neutrophils 56.7 % (42.2-75.2); Absolute Eosinophils 0.2 10^3/uL (0-0.7); Absolute Immature Granulocytes 0.1 10^3/uL (0-0.05); Absolute Lymphocytes 3.2 10^3/uL (1.2-3.4); Hematocrit 30.9 % (39.0-52.0); Hemoglobin 9.8 g/dL (13.0-18.0); Mean Corp Hgb Conc. 31.7 g/dL (33.0-37.0); Mean Corpuscular Hgb 30.6 pg (27.0-31.0); Mean Corpuscular Volume 96.6 fL (80.0-94.0); Mean Platelet Volume 10.7 fL (7.4-10.4); Nucleated Red Blood Cells % 0 % (-); Platelet Count 253 10^3/uL (130-400); Red Cell Dist. Width 14.6 % (11.5-14.5); White Blood Cell Count 10.5 10^3/uL (4.8-10.8)
== END ==
LOC: HWLAB 13:34
PROVIDERS: ATTENDING PHYSICIAN Internal Medicine
DX: K92.2 Gastrointestinal hemorrhage, unspecified (principal)
CPT/HCPCS: 36415; 85025

== ENCOUNTER → 2024-02-12 08:11 | Outpatient (REF) | payer MEDICARE, OTHER, SELFPAY ==
[2024-02-12 09:23] LABS: % Basophils 0.2 % (0-2); % Eosinophils 2.7 % (0-6); % Immature Granulocytes 0.6 % (0-0.5); % Lymphocytes 33.1 % (20.5-51.1); % Monocytes 8.7 % (1.7-9.3); % Neutrophils 54.7 % (42.2-75.2); Absolute Eosinophils 0.2 10^3/uL (0-0.7); Absolute Immature Granulocytes 0.1 10^3/uL (0-0.05); Absolute Monocytes 0.8 10^3/uL (0.1-0.6); Hematocrit 32.5 % (39.0-52.0); Hemoglobin 10.2 g/dL (13.0-18.0); Mean Corp Hgb Conc. 31.4 g/dL (33.0-37.0); Mean Corpuscular Hgb 29.7 pg (27.0-31.0); Mean Corpuscular Volume 94.8 fL (80.0-94.0); Mean Platelet Volume 10.1 fL (7.4-10.4); Nucleated Red Blood Cells % 0 % (-); Platelet Count 211 10^3/uL (130-400); Red Blood Cell Count 3.43 10^6/uL (4.70-6.10); Red Cell Dist. Width 14.9 % (11.5-14.5)
== END ==
LOC: HWLAB 08:11
PROVIDERS: ATTENDING PHYSICIAN Internal Medicine
DX: D64.9 Anemia, unspecified (principal)
CPT/HCPCS: 36415; 85025

== ENCOUNTER → 2024-02-20 07:55 | Outpatient (REF) | payer MEDICARE, OTHER, SELFPAY ==
[2024-02-20 09:29] LABS: % Basophils 0.3 % (0-2); % Eosinophils 3.1 % (0-6); % Immature Granulocytes 0.3 % (0-0.5); % Lymphocytes 36.1 % (20.5-51.1); % Monocytes 8.5 % (1.7-9.3); % Neutrophils 51.7 % (42.2-75.2); Absolute Eosinophils 0.3 10^3/uL (0-0.7); Absolute Lymphocytes 3.3 10^3/uL (1.2-3.4); Absolute Monocytes 0.8 10^3/uL (0.1-0.6); Absolute Neutrophils 4.8 10^3/uL (1.4-6.5); Hemoglobin 10.9 g/dL (13.0-18.0); Mean Corp Hgb Conc. 31.1 g/dL (33.0-37.0); Mean Corpuscular Volume 96.4 fL (80.0-94.0); Mean Platelet Volume 10.6 fL (7.4-10.4); Nucleated Red Blood Cells % 0 % (-); Platelet Count 179 10^3/uL (130-400); Red Blood Cell Count 3.63 10^6/uL (4.70-6.10); Red Cell Dist. Width 14.8 % (11.5-14.5); White Blood Cell Count 9.2 10^3/uL (4.8-10.8)
[2024-02-20 09:38] LABS: ALT (SGPT) 30 U/L (0-50); AST (SGOT) 38 U/L (17-59); Albumin 3.9 g/dl (3.5-5.0); Alkaline Phosphatase 89 U/L (38-126); Blood Urea Nitrogen 30 mg/dl (9-20); Calcium 9.3 mg/dl (8.4-10.2); Carbon Dioxide 34 mmol/L (22-30); Chloride 102 mmol/L (98-107); Glucose 94 mg/dl (70-99); HDL Cholesterol 52 mg/dl; LDL Cholesterol, Calculated 66 mg/dl; Potassium 4.8 mmol/L (3.5-5.1); Sodium 144 mmol/L (135-145); Total Bilirubin 0.6 mg/dl (0.2-1.3); Total Cholesterol 134 mg/dl (50-199); Total Protein 6.8 g/dl (6.3-8.2); Triglyceride 83 mg/dl (10-149); Very Low Density Lipoprotein 16 mg/dl (0-30); eGFR > 60.00
== END ==
LOC: HWLAB 07:55
PROVIDERS: ATTENDING PHYSICIAN Internal Medicine; REFERRING PHYSICIAN Internal Medicine Pulmonary Disease
DX: E03.9 Hypothyroidism, unspecified (principal); I10 Essential (primary) hypertension; E87.5 Hyperkalemia
CPT/HCPCS: 36415; 80053; 80061; 84443; 85025

== ENCOUNTER → 2024-03-29 07:38 | Outpatient (REF) | payer MEDICARE, OTHER, SELFPAY ==
[2024-03-29 09:32] LABS: % Basophils 0.2 % (0-2); % Immature Granulocytes 0.3 % (0-0.5); % Lymphocytes 37.5 % (20.5-51.1); % Monocytes 9.9 % (1.7-9.3); % Neutrophils 50.1 % (42.2-75.2); Absolute Eosinophils 0.2 10^3/uL (0-0.7); Absolute Lymphocytes 3.9 10^3/uL (1.2-3.4); Absolute Neutrophils 5.1 10^3/uL (1.4-6.5); Hematocrit 41.8 % (39.0-52.0); Hemoglobin 13.1 g/dL (13.0-18.0); Mean Corp Hgb Conc. 31.3 g/dL (33.0-37.0); Mean Corpuscular Hgb 30.6 pg (27.0-31.0); Mean Corpuscular Volume 97.7 fL (80.0-94.0); Mean Platelet Volume 10.7 fL (7.4-10.4); Nucleated Red Blood Cells % 0 % (-); Platelet Count 175 10^3/uL (130-400); Red Blood Cell Count 4.28 10^6/uL (4.70-6.10); Red Cell Dist. Width 13.3 % (11.5-14.5); White Blood Cell Count 10.3 10^3/uL (4.8-10.8)
[2024-03-29 09:43] LABS: ALT (SGPT) 43 U/L (0-50); AST (SGOT) 45 U/L (17-59); Albumin 3.9 g/dl (3.5-5.0); Alkaline Phosphatase 93 U/L (38-126); Direct Bilirubin 0.1 mg/dl (0.0-0.4); Total Bilirubin 0.4 mg/dl (0.2-1.3)
== END ==
LOC: HWLAB 07:38
PROVIDERS: ATTENDING PHYSICIAN Internal Medicine Pulmonary Disease; FAMILY PHYSICIAN Internal Medicine
DX: Z51.81 Encounter for therapeutic drug level monitoring (principal)
CPT/HCPCS: 36415; 80076; 85025

== ENCOUNTER → 2024-06-15 09:43 | Outpatient (REF) | payer MEDICARE, OTHER, SELFPAY | LOC: HWLAB 09:43 | PROVIDERS: ATTENDING PHYSICIAN Specialist; FAMILY PHYSICIAN Internal Medicine | DX: N40.1 Benign prostatic hyperplasia with lower urinary tract symptoms (principal) | CPT/HCPCS: 36415; 84153 ==

== ENCOUNTER → 2024-07-23 07:13 | Outpatient (REF) | payer MEDICARE, OTHER, SELFPAY ==
[2024-07-23 10:15] LABS: Urine Albumin 2+ (Neg - Trace); Urine Bilirubin Negative (Negative); Urine Character Clear (Clear); Urine Color Yellow; Urine Glucose Negative (Negative); Urine Ketone Negative (Negative); Urine Leukocyte 3+ (Negative); Urine Nitrite Negative (Negative); Urine Occult Blood 1+ (Negative); Urine Urobilinogen Negative (Neg - 1+)
[2024-07-23 10:49] LABS: Urine Bacteria Few (Negative); Urine Red Blood Cell 0-2 /HPF (0-2); Urine Squamous Cell 0-2 /LPF (Few); Urine White Cell 30-40 /HPF (0-5)
[2024-07-23 12:04] LABS: ALT (SGPT) 33 U/L (0-50); AST (SGOT) 38 U/L (17-59); Albumin 4.2 g/dl (3.5-5.0); Alkaline Phosphatase 110 U/L (38-126); Blood Urea Nitrogen 36 mg/dl (9-20); Calcium 9.2 mg/dl (8.4-10.2); Carbon Dioxide 33 mmol/L (22-30); Chloride 99 mmol/L (98-107); Glucose 110 mg/dl (70-99); Sodium 140 mmol/L (135-145); Total Bilirubin 1.1 mg/dl (0.2-1.3); Total Protein 7.2 g/dl (6.3-8.2); eGFR > 60.00
== END ==
LOC: HWLAB 07:13
PROVIDERS: ATTENDING PHYSICIAN Specialist; FAMILY PHYSICIAN Internal Medicine; REFERRING PHYSICIAN Internal Medicine Pulmonary Disease
DX: I10 Essential (primary) hypertension (principal); J84.9 Interstitial pulmonary disease, unspecified; R60.0 Localized edema
CPT/HCPCS: 36415; 80053; 81003; 81015

== ENCOUNTER → 2024-07-26 08:31 | Outpatient (REF) | payer MEDICARE, OTHER, SELFPAY ==
[2024-07-26 10:59] LABS: % Basophils 0.3 % (0-2); % Eosinophils 1.3 % (0-6); % Immature Granulocytes 0.3 % (0-0.5); % Lymphocytes 27.3 % (20.5-51.1); % Monocytes 10.2 % (1.7-9.3); % Neutrophils 60.6 % (42.2-75.2); Absolute Eosinophils 0.1 10^3/uL (0-0.7); Absolute Lymphocytes 2.5 10^3/uL (1.2-3.4); Absolute Monocytes 0.9 10^3/uL (0.1-0.6); Absolute Neutrophils 5.6 10^3/uL (1.4-6.5); Hematocrit 40.5 % (39.0-52.0); Mean Corp Hgb Conc. 32.1 g/dL (33.0-37.0); Mean Corpuscular Hgb 31.2 pg (27.0-31.0); Mean Corpuscular Volume 97.1 fL (80.0-94.0); Mean Platelet Volume 10.8 fL (7.4-10.4); Nucleated Red Blood Cells % 0 % (-); Platelet Count 169 10^3/uL (130-400); Red Blood Cell Count 4.17 10^6/uL (4.70-6.10); Red Cell Dist. Width 13.7 % (11.5-14.5); White Blood Cell Count 9.2 10^3/uL (4.8-10.8)
[2024-07-26 12:43] LABS: TSH Reflex To Free T4 3.36 uIU/ml (0.47-4.68)
== END ==
LOC: HWLAB 08:31
PROVIDERS: ATTENDING PHYSICIAN Internal Medicine; REFERRING PHYSICIAN Internal Medicine Pulmonary Disease
DX: I10 Essential (primary) hypertension (principal)
CPT/HCPCS: 36415; 84443; 85025

== ENCOUNTER → 2024-12-29 08:38 | Outpatient (REF) | payer MEDICARE, OTHER, SELFPAY ==
[2024-12-29 13:03] LABS: ALT (SGPT) 33 U/L (0-50); AST (SGOT) 36 U/L (17-59); Albumin 3.9 g/dl (3.5-5.0); Alkaline Phosphatase 106 U/L (38-126); Blood Urea Nitrogen 34 mg/dl (9-20); Calcium 9.6 mg/dl (8.4-10.2); Carbon Dioxide 33 mmol/L (22-30); Chloride 103 mmol/L (98-107); Glucose 97 mg/dl (70-99); HDL Cholesterol 50 mg/dl; LDL Cholesterol, Calculated 96 mg/dl; Potassium 4.4 mmol/L (3.5-5.1); Sodium 141 mmol/L (135-145); Total Protein 7.1 g/dl (6.3-8.2); Very Low Density Lipoprotein 16 mg/dl (0-30); eGFR > 60.00
[2024-12-29 13:30] LABS: PSA, Total - Diagnostic 1.97 ng/ml (0.0-4.0); TSH 3.79 uIU/ml (0.47-4.68)
[2024-12-29 14:06] LABS: Glycohemoglobin (HgbA1c) 5.5 % (4.0-5.6)
== END ==
LOC: HWLAB 08:38
PROVIDERS: ATTENDING PHYSICIAN Specialist; FAMILY PHYSICIAN Internal Medicine
DX: I10 Essential (primary) hypertension (principal); E87.5 Hyperkalemia; E03.9 Hypothyroidism, unspecified; E78.2 Mixed hyperlipidemia; J84.9 Interstitial pulmonary disease, unspecified; R60.0 Localized edema; N40.1 Benign prostatic hyperplasia with lower urinary tract symptoms
CPT/HCPCS: 36415; 80053; 80061; 83036; 84153; 84443

== ENCOUNTER → 2024-12-31 14:06 | Outpatient (REF) | payer MEDICARE, OTHER, SELFPAY ==
[2024-12-31 15:10] LABS: Hematocrit 40.9 % (39.0-52.0); Hemoglobin 13.0 g/dL (13.0-18.0); Mean Corp Hgb Conc. 31.8 g/dL (33.0-37.0); Mean Corpuscular Volume 96.2 fL (80.0-94.0); Nucleated Red Blood Cells % 0 % (-); Platelet Count 161 10^3/uL (130-400); Red Cell Dist. Width 13.3 % (11.5-14.5)
== END ==
LOC: REG 14:06
PROVIDERS: ATTENDING PHYSICIAN Internal Medicine
DX: K92.2 Gastrointestinal hemorrhage, unspecified (principal)
CPT/HCPCS: 36415; 85025

== ENCOUNTER → 2025-03-04 10:41 | Outpatient (REF) | payer MEDICARE, OTHER, SELFPAY ==
[2025-03-04 12:20] LABS: Hematocrit 41.3 % (39.0-52.0); Hemoglobin 13.0 g/dL (13.0-18.0); Mean Corp Hgb Conc. 31.5 g/dL (33.0-37.0); Mean Corpuscular Volume 96.0 fL (80.0-94.0); Nucleated Red Blood Cells % 0 % (-); Platelet Count 175 10^3/uL (130-400); Red Cell Dist. Width 13.2 % (11.5-14.5)
[2025-03-04 12:38] LABS: Glycohemoglobin (HgbA1c) 5.6 % (4.0-5.9)
[2025-03-04 13:17] LABS: ALT (SGPT) 51 U/L (0-50); AST (SGOT) 48 U/L (17-59); Albumin 3.9 g/dl (3.5-5.0); Alkaline Phosphatase 112 U/L (38-126); Blood Urea Nitrogen 21 mg/dl (9-20); Calcium 9.1 mg/dl (8.4-10.2); Carbon Dioxide 36 mmol/L (22-30); Chloride 98 mmol/L (98-107); Glucose 89 mg/dl (70-99); HDL Cholesterol 59 mg/dl; LDL Cholesterol, Calculated 92 mg/dl; Potassium 4.7 mmol/L (3.5-5.1); Sodium 140 mmol/L (135-145); Total Protein 7.1 g/dl (6.3-8.2); Very Low Density Lipoprotein 12 mg/dl (0-30); eGFR > 60.00
== END ==
LOC: REG 10:41
PROVIDERS: ATTENDING PHYSICIAN Registered Nurse Pediatrics; FAMILY PHYSICIAN Internal Medicine
DX: J67.9 Hypersensitivity pneumonitis due to unspecified organic dust (principal); Z51.81 Encounter for therapeutic drug level monitoring; J96.11 Chronic respiratory failure with hypoxia; J84.9 Interstitial pulmonary disease, unspecified; I10 Essential (primary) hypertension; I27.20 Pulmonary hypertension, unspecified; E78.5 Hyperlipidemia, unspecified; E03.9 Hypothyroidism, unspecified
CPT/HCPCS: 36415; 80053; 80061; 82248; 83036; 84443; 85025

== ENCOUNTER 2025-04-11 08:31 | Inpatient (IN) | payer MEDICARE, OTHER, SELFPAY ==
[2025-04-08] VITALS (8 sets, daily range): BP systolic 132–161; BP diastolic 83–96; BMI 32.1; BMI 31.5
[2025-04-08 15:51] LABS: Hematocrit 39.6 % (39.0-52.0); Hemoglobin 12.7 g/dL (13.0-18.0); Mean Corp Hgb Conc. 32.1 g/dL (33.0-37.0); Mean Corpuscular Volume 93.2 fL (80.0-94.0); Nucleated Red Blood Cells % 0 % (-); Platelet Count 177 10^3/uL (130-400); Red Cell Dist. Width 13.2 % (11.5-14.5)
[2025-04-08 16:06] LABS: ALT (SGPT) 29 U/L (0-50); AST (SGOT) 37 U/L (17-59); Albumin 3.9 g/dl (3.5-5.0); Alkaline Phosphatase 112 U/L (38-126); Blood Urea Nitrogen 22 mg/dl (9-20); Calcium 9.3 mg/dl (8.4-10.2); Chloride 98 mmol/L (98-107); Estimated Creatinine Clearance 75 ml/min; Glucose 99 mg/dl (70-99); Potassium 3.9 mmol/L (3.5-5.1); Sodium 134 mmol/L (135-145); Total Protein 7.1 g/dl (6.3-8.2); eGFR > 60.00
[2025-04-08 16:14] LABS: Carbon Dioxide 33 mmol/L (22-30)
--- NOTE | 2025-04-08 16:30 | ED.GENMED ---
History of Present Illness
General
Chief Complaint: Eye Problems
Time Seen by Provider: 04/08/25 16:09
History of Present Illness
History of Present Illness:
79-year-old male with history of interstitial lung disease on 8 to 14 L at baseline presenting to the emergency department for double vision. Patient reports around 2 PM yesterday he was driving and acutely noticed double vision. He notes that the
symptoms have been constant since onset. at bedside reports that the right eyelid seems to be drooping slightly more than usual, and the right pupil seemed different than the left. Patient otherwise denies any changes in his speech, weakness
or numbness to extremities. Patient denies any history of stroke. Denies any recent fall or trauma. He is not on any anticoagulation. He notes the double vision improves when he closes 1 eye. He denies additional acute medical complaints
Past History
Past History
ED Past Medical History: HTN, Hypothyroidism and Other (Gout, Interstitial lung disease)
ED Past Surgical History: Appendectomy, Cholecystectomy and Other (Bilateral cataracts)
Social History
Tobacco: Non-smoker
Alcohol: None
Personal:
Living: with family
Employment: Employed
Family History
Family History: Hypertension
Phy Exam
Physical Exam
Physical Exam:
General: Well-appearing, no clinical signs of dehydration, nontoxic and in no acute distress
HEENT: protecting airway. Asymmetric pupils, with right pupil more dilated than left, bilaterally reactive. Extraocular movements are grossly intact, however right eye when looking toward the left, slightly lagged. Drooping right eyelid without
drooping to the remainder of the face
Neck: appears supple
CV: Normal heart rate, regular rhythm, no evidence of cyanosis
Resp: No accessory muscle use, no increased work of breathing
Abd: Soft and non-distended, no tenderness to palpation, normal bowel sounds
Extremities: No deformities, no swelling
Neuro: alert, no focal neurologic deficit. Difficulty with peripheral vision testing bilaterally
: deferred
Rectal: deferred
Psych: Normal affect
Skin: Intact
NIH Stroke Score
Level of Consciousness: 0 - Alert
LOC questions: 0-Answers both correctly
LOC Commands: 0-Performs both correctly
Best Gaze: 1-Partial gaze palsy
Visual Covarrubias: 3=Bilateral hemianopia
Facial palsy: 0=Normal, symmetrical
Motor - Right Arm: 0=No drift 10 seconds
Motor - Left Arm: 0=No drift 10 seconds
Motor - Right Le-No drift 5 seconds
Motor - Left Le-No drift 5 seconds
Limb Ataxia: 0-Absent
Sensation: 0-Normal
Best Language: 0-No aphasia
Dysarthria: 0-Normal
Extinction and Inattention: 0-No abnormality
Total Score:: 4
Course
Orders/Labs/Results
Orders:
Orders
04/08/25 Dinner
Cholesterol Lowering
At Your Request: Full Participation
Cholesterol Lowering: Sodium, 2 Gram
04/08/25 15:20
Electrocardiogram (*1) Urgent
Reason for Study: Other
Other Reason for Exam: Respiratory Distress
EKG- Treatment ONCE
04/08/25 15:39
Complete Blood Count/With Diff Urgent
Comprehensive Metabolic Panel Urgent
04/08/25 16:28
CT Head & Neck Angio W/wo IV Urgent
Comment:
Reason For Exam: double vision, abnormal right pupil, lid lag
04/08/25 20:51
Admit/Transfer Patient As Directed
Co-Sign Provider:
Level of Care: Observation services
Assign to:: Telemetry
Physician / Group: luz oseguera
Diagnosis: r eye diplopia/ptosis likely 3rd nerve palsy vs cva/tia
Reason for Telemetry: CVA/TIA
Date to Stop Telemetry: 04/11/25
Time to Stop Telemetry: 11:00
Code Status As Directed
Resuscitation Status: Do not resuscitate
Reached after discussion with pt or family/Healthcare POA: Yes
Based on pt advanced directive or healthcare POA form: Yes
Decision communicated with: Per patient with family at bedside
04/08/25 20:55
DNR Bracelet Application ONCE
04/08/25 20:57
PRN Pain Medication Management As Directed
May give lesser potent ordered pain med per pt: Yes
preference::
Protocol:: Medication orders for pain may be administered in a
manner that supports deferring to patient preference
when the pt is:
- Requesting an ordered lesser potent pain medication.
Least to most potent pain medications are defined
as: acetaminophen < NSAID < tramadol < opioids
(morphine, oxycodone, hydromorphone).
- Requesting a lesser dose of the same medication IF
ORDERED.
- Requesting a less intrusive route of administration
if both routes are prescribed by the provider (PO <
IV).
04/08/25 20:58
NEUROLOGY CONSULT Routine
Consulting Provider: Gopal German
Was physician already notified: Yes
Reason for consult: diplopia right eye ptosis
04/08/25 22:06
Acetaminophen [Tylenol] 650 mg PO Q4HPRN PRN
04/08/25 22:06
Activity As Directed
Activity Level: With Assistance
Neurological Checks As Directed
Frequency: q4h
Pneumatic Compression Sleeves As Directed
Type: Knee high
Vital Signs As Directed
Frequency: Per unit guidelines
O2 Therapy [RESP] Routine
High Flow Nasal Cannula FIO2%: 8
Titrate/Wean O2 to maintain O2 sat greater than (%): 92
Special Instructions: Patient on 6 to 8 L at rest, 10 to 12 L with exertion due to ILD
Pulse Ox/spot Check [RESP] Routine
Quantity: 1
Ot Eval And Treat Routine
Pt Eval And Treat Routine
Activity Level: With Assistance
DX Deep Vein Thrombosis Video Routine
04/08/25 23:00
Terazosin [Hytrin] 2 mg PO HS
04/09/25 06:00
Cardiovascular Evaluation IN AM
Complete Blood Count/With Diff IN AM
Comprehensive Metabolic Panel IN AM
Hgba1c [Glycohemoglobin (HgbA1c)] IN AM
MA [place] IN AM
Comment:
Reason For Exam: diplopia right eye ptosis
OK for patient to be off Cardiac Monitoring for MRI: Yes
Recent pill cam endoscopy?: No
Pacemaker/Defibrillator?: No
MA Neck With Contrast IN AM
Comment:
Reason For Exam: diplopia right eye ptosis
OK for patient to be off Cardiac Monitoring for MRI: Yes
Recent pill cam endoscopy?: No
Pacemaker/Defibrillator?: No
MRI Brain [MR Brain Without Contrast] IN AM
Comment:
Reason For Exam: diplopia right eye ptosis
OK for patient to be off Cardiac Monitoring for MRI: Yes
Recent pill cam endoscopy?: No
Pacemaker/Defibrillator?: No
Levothyroxine [Synthroid] 25 mcg PO DAILY@0600
04/09/25 08:00
Allopurinol [Zyloprim] 100 mg PO DAILY
Cholecalciferol (Vitamin D3) [VITAMIN D3 (cholecalciferol)] 50 mcg PO DAILY
Eplerenone [Inspra] 50 mg PO BID
Ezetimibe [Zetia] 10 mg PO DAILY
Ferrous Sulfate [Feosol] 325 mg PO Q48H
Finasteride [Proscar] 5 mg PO DAILY
Furosemide [Lasix] 10 mg PO DAILY
Multivitamin [Theragran] 1 tablet PO DAILY
Vitamin B Complex with C [B COMPLEX w/VITAMIN C] 1 caplet PO DAILY
04/11/25 11:00
DC Protocol for Telemetry ONCE
Abnormal Lab Results
04/08/25
15:39
WBC 10.9 H 10^3/uL
(4.8-10.8)
RBC 4.25 L 10^6/uL
(4.70-6.10)
Hgb 12.7 L g/dL
(13.0-18.0)
MCHC 32.1 L g/dL
(33.0-37.0)
MPV 10.6 H fL
(7.4-10.4)
Abs Immat Gran (auto) 0.1 H 10^3/uL
(0-0.05)
Absolute Neuts (auto) 8.2 H 10^3/uL
(1.4-6.5)
Absolute Monos (auto) 0.9 H 10^3/uL
(0.1-0.6)
Lymphocytes % 15.7 L %
(20.5-51.1)
Sodium 134 L mmol/L
(135-145)
Carbon Dioxide 33 H mmol/L
(22-30)
BUN 22 H mg/dl
(9-20)
04/08/25 15:39
04/08/25 15:39
Vital Signs
Initial and Last Documented VS:
Initial Vital Signs
Pulse Resp Pulse Ox
97 26 96
04/08/25 15:22 04/08/25 15:22 04/08/25 15:22
Last Documented Vital Signs
Temp Pulse Resp BP Pulse Ox
98.0 F 99 17 151/88 96
04/08/25 22:32 04/08/25 22:32 04/08/25 22:32 04/08/25 22:32 04/08/25 22:32
MDM/Problems Addressed
MDM/Problems Addressed:
79-year-old male with history of interstitial lung disease on chronic oxygen presenting for double vision since 2 PM yesterday. Vital signs on arrival are normal.
On exam, patient resting comfortably, no acute distress. Patient with abnormal neurologic exam, with report of double vision. Also patient with difficulty on peripheral field testing, with abnormal pupils, abnormal extraocular movements. Obvious
lid lag to the right eye. Concern for possible cranial nerve palsy versus CVA. No indication for TNK given onset of symptoms more than 24 hours prior to arrival. Plan for CT and CTA with discussion with neurology.
19:45 -CT and CT angio negative for acute process. In discussion with neurology, recommending MRI with MRA. Plan for admission
*Pulse Oximetry
SaO2: 96
Nasal Cannula flow liters per minute: 8
Patient hypoxic: no
*Critical Care Note
Total Time (30-74mins, 75-104mins- exclusive of procedures): Not Applicable
ED Attending Note
-
Portions of this chart may have been created with voice recognition software.� Occasional wrong word or��sound alike� substitutions may have occurred due to the inherent limitations of voice recognition software.
Discharge Plan
Departure
Patient Disposition: Admit
Date of Disposition: 04/08/25
Time of Disposition: 19:47
Presentation/result/management discussed w/ accepting MD/DO: Hospitalist
Patient with high blood pressure during this ER visit?: No
Condition: Fair
Discharge Problem:
Double vision, Stroke-like symptoms
Interventions
Interventions:
*Risk Screen - Suicide Last Done: 04/08/25 15:26
*General Assessment Last Done: 04/08/25 15:26
*Neglect/Abuse Screening Last Done: 04/08/25 15:26
*ED COVID-19 Vaccine History Last Done: 04/08/25 15:26
*ED Influenza Vaccine History Last Done: 04/08/25 15:26
[facility] Fall Risk Assessment Tool Last Done: 04/08/25 17:41
--- NOTE | 2025-04-08 20:11 | W.PN.UPDATE ---
Update Note
Progress Note Update
This note serves as an addendum to the H&P by interstate bus dispatcher Jacquie Tidwell
HPI
79M HX Hi flow home O2 ( 8-14 L NC at baseline ) depdent ILDx seen at ER;
- for evalaution of new onset acute double vision started around 2 PM yesterday while he was driving
- the symptoms have been constant since onset.
- notedthe double vision improves when closes 1 eye.
- reports that the R eyelid seems to be drooping slightly more than usual+ the R pupil seemed different than the left. - - denies any changes in his speech, weakness or numbness to extremities.
- denies any history of stroke.
- not on any anticoagulation. He denies additional acute medical complaints
PHX:
pHTN, Hypothyroid, BPH
Relevant VS
Temp Pulse Resp BP Pulse Ox
98.1 F 88 28 154/84 97
04/08/25 15:45 04/08/25 20:00 04/08/25 20:00 04/08/25 20:00 04/08/25 20:00
PE
Gen: NAD
HEENT:
Asymmetric dilated pupils - Rt> Lt
R eye position:neutral
Diplopia
R eye lis ptosis
Limited peripheral visua filed testing
Neck: No carotic bruis
Lungs: CTA
Cor: RRR S1 S2
Abdomen:�soft NT NG NRT
SE[employer] F[employer] COLLECTOR: alert, no focal neurologic deficit.
NIH score per ER attd evaluation noted for 4 ( 1-Partial gaze palsy +3=Bilateral hemianopia)
Relevant Data
04/08/25
15:39
WBC 10.9 H
Hgb 12.7 L
Plt Count 177
Sodium 134 L
Carbon Dioxide 33 H
BUN 22 H
Creatinine 1.0
eGFR > 60.00
Total Bilirubin 1.0
CT Head & Neck Angio W/wo IV indicated for double vision
- No significant vascular occlusion, aneurysm or dissection.
- The visualized upper lung zones demonstrate bilateral subpleural fibrotic/inflammatory pneumonitis change.
Last hospitalist admission: 01/22/24 - 01/26/24
DC DXs:
Acute lower gastrointestinal bleed
Acute blood loss anemia
Chronic hypoxic respiratory failure
Chronic interstitial lung disease
Pulmonary Hypertension
Hypothyroidism
ASSESSMENT & PLAN
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
Associated acute onset of diplopia, R eye lid ptosis , Dilated R pupil
- NEG H & N CTA
- For Brain MRI and MRA H & N
- Hold off ASA for now
- Neuro consulted
Chronic hypoxic RF on hi flow NC O2 dependent requires up to 8 L with exertion
HX Pulmonary fibrosis/ILD
- FU with Pulmonology at [place] for ILD/pulmonary fibrosis
Pulmonary HTN
- on REGISTERED RESPIRATORY TECHNICIAN Ofev PO q 12H at home
Hypothyroidism
-REGISTERED RESPIRATORY TECHNICIAN Synthroid
BPH
-REGISTERED RESPIRATORY TECHNICIAN Finasteride
-REGISTERED RESPIRATORY TECHNICIAN Terazosin
DVT Px: SCD
Full code
OBS TLM
--- NOTE | 2025-04-08 20:43 | HPS.HSE ---
Family Physician
-
Family Physician: Estephania Saldaña
Chief Complaint
-
Right upper eyelid droop, diplopia
History of Present Illness
79-year-old male who states yesterday at 2 PM noticed his right eye was blurry having difficulty reading along with vertical diplopia. Patient denies headache, facial droop, rash. He reports he has 20/20 vision since having bilateral cataract
extraction with lens implants 20 years ago however he is having difficulty reading out of his right eye distance in the room. He reports diplopia corrects with 1 eye closed. On exam has right eyelid droop with right pupil 4 mm slight sluggish EOM
upward left pupil equal round reactive to light
Patient has past medical history of interstitial lung disease follows with Dr. Rogers at [facility] is on oral OFEV and baseline 6 L nasal cannula oxygen at rest 10 to 12 L with exertion, HTN, pulm HTN, hypothyroidism, diverticular GI bleed with
blood loss anemia proximal sigmoid colon January 2024, BPH, gout
Medical History
Past Medical History
Past Medical History: Reports Other
Additional Past Medical History:
ILD
Pulmonary Hypertension
Chronic Hypoxemic Respiratory Failure on chronic 6 L at rest 10 to 12 L with activity
Hypertension
Hypothyroidism
BPH
Gout
Past Surgical History: Reports Other
Additional Past Surgical History:
Appendectomy
Cholecystectomy
Cataracts
Prostate Biopsy
Social History
Tobacco: Non-smoker
Alcohol: None
Drug: None
Personal:
Living: With Family
Family History
Family History: Not pertinent
Allergies / Home Medications
Allergies reflects when Allergies were last updated in [employer].
Home Medications with original date entered in [employer]
Allergy/Medication List:
Allergies
Allergy/AdvReac Type Severity Reaction Status Date / Time
Sulfa (Sulfonamide Allergy Rash-'years Verified 04/08/25 15:28
Antibiotics) ago'
sulfamethoxazole Allergy Unknown Verified 04/08/25 15:28
trimethoprim Allergy 'patient Verified 04/08/25 15:28
denies'
Home Medications
allopurinol 100 mg tablet 100 mg PO DAILY Gout 05/11/11
cholecalciferol (vitamin D3) 50 mcg (2,000 unit) tablet 50 mcg PO DAILY Supplement 04/23/23
ezetimibe 10 mg tablet 10 mg PO DAILY High Cholesterol 04/23/23
finasteride 5 mg tablet 5 mg PO DAILY prostate issue 04/23/23
furosemide 20 mg tablet 10 mg PO DAILY Fluid Retention/Swelling 04/23/23
levothyroxine 25 mcg tablet 25 mcg PO DAILY Thyroid 04/23/23
therapeutic multivitamin 1 tab PO DAILY Supplement 04/23/23
vitamin K2 100 mcg capsule 100 mcg PO DAILY Supplement 04/23/23
nintedanib 100 mg capsule (Ofev) 100 mg PO Q12H Lung/Breathing Issues 01/22/24
terazosin 2 mg capsule 2 mg PO HS Urinary Issue 01/22/24
vitamin B complex 1 tab PO DAILY Supplement 01/22/24
eplerenone 50 mg tablet 50 mg PO BID 04/08/25
ferrous sulfate 325 mg (65 mg iron) tablet 325 mg PO Q48H Supplement 04/08/25
Review of Systems
-
History Source: Patient and Family
A 12 point ROS was completed and negative except as noted: Yes
Constitutional: Denies Fever or Fatigue
EENT: Reports Other (Right upper eyelid ptosis, pupil 4 mm slight sluggish EOM upward gaze, new nearsightedness right eye, left eye pupil equal round reactive to light 3 mm); Denies Sore Throat or Runny Nose
Respiratory: Denies Cough or Trouble Breathing
Cardiac: Denies Chest Pain, Diaphoresis, Palpitations or Syncope
Abdomen/GI: Denies Abdominal Pain, Nausea, Vomiting, Diarrhea or Constipated
: Denies Dysuria, Frequency, Flank Pain, Incontinence or Difficulty Voiding
Musculoskeletal: Denies Joint Pain or Edema
Skin: Denies Itching or Rash
Neurological: Denies Dizzy, Headache or Weakness
Endocrine: Reports No Symptoms
Hematologic/Lymphatic: Reports No Symptoms
Psych: Reports Calm
Physical Exam
Vital Signs
Vital Signs
Temp Pulse Resp BP Pulse Ox
98.1 F 88 28 154/84 97
04/08/25 15:45 04/08/25 20:00 04/08/25 20:00 04/08/25 20:00 04/08/25 20:00
Physical Exam
General: Comfortable and Conversant; No Slurred Speech
HEENT: NormoCephalic, Anicteric, Moist mucous membranes, August Conjunctivae, Neck Nontender, Oxygen (Chronic 6 to 8 L at rest) and Other (Right upper eyelid ptosis, pupil 4 mm slight sluggish EOM upward gaze, new nearsightedness right eye, left eye
pupil equal round reactive to light 3 mm)
Respiratory: Clear; No Wheezes, Rales or Rhonchi
Cardiac: S1/S2 and Regular Rhythm; No Murmur, Rub or Gallop
Breast: Deferred by me
GI: Soft, Non Tender, Non Distended, Normal Bowel Sounds and No Hepatosplenomegaly
Rectal: Deferred by Provider
Genito-urinary: Deferred by me
Musculoskeletal: No Clubbing, No Cyanosis and No Edema
Skin: Warm and Dry; No Rash
Neuro: AO x 3, No Sensory Deficits and Other (Right upper eyelid ptosis, pupil 4 mm slight sluggish EOM upward gaze, new nearsightedness right eye, left eye pupil equal round reactive to light 3 mm); No Slurred Speech, Facial Droop, Tremors or
Sedated
Psych: Calm
Laboratory Results
-
04/08/25 15:39
04/08/25 15:39
Laboratory Results
Total Bilirubin 1.0 mg/dl (0.2-1.3) 04/08/25 15:39
AST 37 U/L (17-59) 04/08/25 15:39
ALT 29 U/L (0-50) 04/08/25 15:39
Alkaline Phosphatase 112 U/L (38-126) 04/08/25 15:39
Data Reviewed
-
CT Scan: Report Reviewed by me
Impression/Plan
-
Impression/plan:
Observation telemetry
#Right upper eyelid droop with blurred vision concern for 3rd nerve palsy versus TIA Cva
-Consult neuro
- MRI/MRA brain and neck
- Patient reports cannot take aspirin with Ofev pulmonary medication
- Check lipid profile, HgbA1c
- Consult PT/OT/case management
CT head neck:No significant vascular occlusion, aneurysm or dissection.
The visualized upper lung zones demonstrate bilateral subpleural fibrotic/inflammatory pneumonitis change.
#Interstitial Lung disease oxygen dependent
-follows with Dr. Roegrs at [facility] is on oral OFEV 100 mg every 12 hours
-cont baseline 6 L nasal cannula oxygen at rest 10 to 12 L with exertion
#HTN
BP 154/84
- Continue Eplerenone 50 mg twice daily
#HLD
Continue ezetimibe 10 mg daily
#Pulm HTN
#Hypothyroidism
Continue levothyroxine 25 mcg p.o. daily
#Diverticular GI bleed with blood loss anemia proximal sigmoid colon January 2024
#BPH
Continue terazosin 2 mg at bedtime, finasteride 5 mg daily
#Gout
Continue allopurinol 100 mg daily
DVT prophylaxis
SCDs
DNR per patient with family at bedside
--- NOTE | 2025-04-08 22:20 | PTCARENOTE ---
Pt transported from ED to 3W via stretcher. Pt able to stand/pivot from stretcher to bed with standby assist. On 6L O2 @ baseline, vitals WNL. Pt oriented to room, TELE #[id number], call burrell within reach.
[2025-04-08] MEDS: HYTRIN 2 MG PO (22:37)
[2025-04-09] MEDS: INSPRA 50 MG PO ×3 (00:03→21:51)
[2025-04-09 03:25] VITALS: BP 129/74
[2025-04-09] MEDS: SYNTHROID 25 MCG PO (06:29)
--- NOTE | 2025-04-09 07:18 | W.PN.HOSP.TC ---
Addendum entered and electronically signed by Celia Louis MD 04/09/25 20:10:
I saw and evaluated the patient independently. I reviewed and discussed the resident�s note and agree with findings and plan as documented by Dr. Farmer.
GENERAL: well developed, well nourished, male in no apparent distress
HEENT: NC/AT--right eye with ptosis and mydriasis--6L O2
HEART: regular rate and rhythm, +S1, +S2
LUNGS : coarse crackles bilaterally
ABDOM: soft, nontender, nondistended, + bowel sounds
EXT: no cyanosis, clubbing, or edema
NEUROLOGIC: grossly intact
acute onset of diploplia--due to acute CN III palsy--? from brainstem stroke, myasthenia, lyme, syphilis, etc--apprec neuro--CT head, CTA WNL--await MRI/MRA--eye patch--PT/OT
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 Rogers at [facility] is on oral OFEV 100 mg every 12 hours (not on formulary here)- cont baseline 6 L nasal cannula oxygen at rest 10 to 12 L with
exertion-- concerned that his sats can drop to 70% with any movement even at home--will consult pulmonary
Essential HTN- Eplerenone 50 mg twice daily- furosemide 10mg PO daily
HLD- Continue ezetimibe 10 mg daily- lipid panel (LDL 84, triglycerides 66)
Pulm HTN, likely type 3- likely secondary to ILD
Hypothyroidism- levothyroxine 25 mcg PO daily
Diverticular GI bleed with blood loss anemia proximal sigmoid colon January 2024
BPH- terazosin 2 mg at bedtime, finasteride 5 mg daily
Gout- allopurinol 100 mg daily
DVT proph-- SCDs
code status--FULL CODE
Original Note:
Today's Communication/Plan
-
- f/u neuro recs
- MRI/MRA ordered
- eye patch for R eye
Assessment / Plan
Assessment / Plan
In summary, 79 yo M PMH ILD (8 to 14 L O2 at baseline), HTN, HLD p/w double vision of acute onset.
CN III palsy
- ddx also includes TIA, CVA
- per neurology, could be brainstem stroke. Per Neurology, their exam reports R eye adduction deficit
- other etiologies could include myasthenia gravis but would typically present with bilateral ptosis
- furthermore, I did not appreciate the inferiorly and laterally directed gaze of R eye, classically associated with CN 3 palsy.
- CTA Head Neck did not show evidence of vascular occlusion, aneurysm, or dissection (c/f P. comm artery aneurysm classically leads to CN III palsy)
- MRI/MRA brain and neck ordered
- lipid panel unremarkable (LDL 84, triglycerides 66)
- A1c normal (5.6%)
- f/u neurology recommendations
- PT/OT consulted
- eye patch ordered via nursing to place
Interstitial Lung disease - oxygen dependent
- follows with Dr. Rogers at [facility] is on oral OFEV 100 mg every 12 hours (not on formulary here)
- cont baseline 6 L nasal cannula oxygen at rest 10 to 12 L with exertion
Essential HTN
- BP 140s/80s
- Eplerenone 50 mg twice daily
- furosemide 10mg PO daily
HLD
- Continue ezetimibe 10 mg daily
- lipid panel (LDL 84, triglycerides 66)
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
- likely secondary to ILD
Chronic issues as below
Hypothyroidism
- levothyroxine 25 mcg PO daily
Diverticular GI bleed with blood loss anemia proximal sigmoid colon January 2024
BPH
- terazosin 2 mg at bedtime, finasteride 5 mg daily
Gout
- allopurinol 100 mg daily
Diet: low cholesterol
DVTppx: SCDs
Anticipated Discharge: > 48 hours
Subjective/Interval History
-
Date of Service: April 09, 2025
79 yo M PMH ILD (6L O2 at baseline) p/w double vision.
acute onset while driving. Have been constant. repots that right eyelid appears droopy and right pupil appeared different.
Denies dysarthria, focal weakness or numbness. Denies headache, chest pain, abdominal pain. He reports no preceding symptoms, came out of the blue.
Denies hx of stroke, fall or trauma
PMH: baseline 6 L nasal cannula oxygen at rest 10 to 12 L with exertion, HTN, pulm HTN, hypothyroidism, diverticular GI bleed with blood loss anemia proximal sigmoid colon January 2024, BPH, gout
PSH: Appendectomy, Cholecystectomy and Other (Bilateral cataracts)
EtOH: none
Smoking: none
no rec drugs
Objective Data
-
Labs:
Laboratory Results
04/09/25
06:00
WBC Pending
Hgb Pending
Hct Pending
Plt Count Pending
Sodium Pending
Potassium Pending
Chloride Pending
Carbon Dioxide Pending
BUN Pending
Creatinine Pending
Glucose Pending
Calcium Pending
Total Bilirubin Pending
AST Pending
ALT Pending
Alkaline Phosphatase Pending
- lipid panel unremarkable (LDL 84, triglycerides 66)
- A1c normal (5.6%)
CTA Head/Neck
IMPRESSION: No significant vascular occlusion, aneurysm or dissection.
The visualized upper lung zones demonstrate bilateral subpleural fibrotic/inflammatory pneumonitis change.
Vital Signs:
Vital Signs
Temp Pulse Resp BP Pulse Ox
97.6 F 78 20 129/74 97
04/09/25 03:25 04/09/25 03:25 04/09/25 03:25 04/09/25 03:25 04/09/25 03:25
Review of Systems
-
Constitutional: Reports No Symptoms
EENT: Reports No Symptoms Reported
Respiratory: Reports Trouble Breathing
Cardiac: Reports No Symptoms
Abdomen/GI: Reports No Symptoms
Genitourinary: Reports No Symptoms
Musculoskeletal: Reports No Symptoms
Neuro: Reports Other (blurry, double vision)
Physical Exam
-
General: Conversant
HEENT: Normocephalic
Respiratory: Crackles (inspiratory)
Cardiac: Other (no murmurs)
GI: Soft, Nontender and Nondistended
Musculoskeletal: No Edema (trace to 1+ edema)
Neuro: AO x 3 and Other (R ptosis, R pupillary dilation, on my exam I felt EOMI, but defer to neuro eval. pupillary light reaction intact, he is grossly strong in upper and lower extremities, no focal weakness, or no grossly diminished sensation.)
Psych: Calm
[2025-04-09 07:49] VITALS: BP 132/91
--- NOTE | 2025-04-09 08:46 | CON.NEURO4 ---
Consultation - Neurology 4
-
CONSULTING PHYSICIAN: Dr. Gopal German
REFERRING PHYSICIAN: Dr. Anastasia Solorio
DICTATED BY: Dr. Gopal German
DATE/TIME OF REQUEST: 04/08/2025
DATE/TIME OF CONSULTATION: 04/09/2025
Reason for Consultation: Double vision
ASSESSMENT AND PLAN:
79 years old male with a past medical history of hypertension and interstitial lung disease on 8 to 14 L NC at baseline presenting to the emergency department for double vision. Patient reports around 2 PM on 04/07/2025, he was driving and acutely
noticed double vision. The double vision gets worse on the leftward gaze. He notes that the symptoms have been constant since onset. reported that the right eyelid seems to be drooping slightly more than usual, and the right pupil seemed
different than the left. Patient otherwise denies any changes in his speech, weakness or numbness to extremities. Patient denies any history of stroke. Denies any recent fall or trauma. He is not on any anticoagulation. He notes the double
vision improves when he closes one eye. He denies additional acute medical complaints.
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 The diplopia is worse on the leftward gaze. The patient is unable to fully adduct the right eye. There is also ptosis present on the right side. The etiology could be secondary to a
brainstem stroke. Also myasthenia gravis is in the differential diagnosis. MRI of the brain and MRA of brain and neck are pending. The CT of the head and CTA of head and neck were unremarkable. For now we will keep the patient on aspirin 81 mg
daily, Plavix 75 mg daily and atorvastatin 40 mg daily.
. MRI of the brain and MRA of brain and neck are pending.
. CT head does not show acute intracranial abnormality
. CTA is unremarkable
. Aspirin 81 mg daily and Plavix 75 mg daily.
. Atorvastatin 40 mg daily.
History of Present Illness:
79 years old male with a past medical history of hypertension and interstitial lung disease on 8 to 14 L NC at baseline presenting to the emergency department for double vision. Patient reports around 2 PM on 04/07/2025, he was driving and acutely
noticed double vision. The double vision gets worse on the leftward gaze. He notes that the symptoms have been constant since onset. reported that the right eyelid seems to be drooping slightly more than usual, and the right pupil seemed
different than the left. Patient otherwise denies any changes in his speech, weakness or numbness to extremities. Patient denies any history of stroke. Denies any recent fall or trauma. He is not on any anticoagulation. He notes the double
vision improves when he closes 1 eye. He denies additional acute medical complaints.
Past Medical History: HTN, Hypothyroidism and Interstitial lung disease.
Past Surgical History: Appendectomy, Cholecystectomy
Social History
Tobacco: Non-smoker
Alcohol: None
Family History
Hypertension
Review of Systems:
The 10 point review systems were negative aside from as given in the above history of present illness.
Neurologic Examination:
. The patient is alert and oriented x 3.
. Speech is clear.,
. The cranial nerves II to XII are grossly intact except that the patient appears to have a right 3rd cranial nerve palsy. The patient is unable to fully adduct the right eye and there is ptosis seen on the right side. The right pupil is about 3
mm and the left pupil is about 2 mm, the left pupil reacts better to light as compared to the right pupil. The visual nails are grossly full to confrontation.
. The motor strength is grossly 5/5 bilaterally.
. The sensations are grossly intact.
. The cerebellar examination does not show limb ataxia.
Vital Signs and Labs
-
Vital Signs and Labs:
Vital Signs
Temp Pulse Resp BP Pulse Ox
37.1 C 94 16 132/91 96
04/09/25 07:49 04/09/25 07:49 04/09/25 07:49 04/09/25 07:49 04/09/25 07:49
Sodium 134 mmol/L (135-145) L 04/08/25 15:39
Potassium 3.9 mmol/L (3.5-5.1) 04/08/25 15:39
BUN 22 mg/dl (9-20) H 04/08/25 15:39
Glucose 99 mg/dl (70-99) 04/08/25 15:39
Calcium 9.3 mg/dl (8.4-10.2) 04/08/25 15:39
Medications
Medications
Medications reviewed.
Medications
-
Active Medications
Generic Name Dose Route Start Last Admin
Trade Name Freq PRN Reason Stop Dose Admin
Acetaminophen 650 mg 04/08/25 22:06
Acetaminophen 325 Mg Tablet PO 05/06/25 22:05
Q4HPRN PRN
mild pain/[place]/temp> 100.4F
Allopurinol 100 mg 04/09/25 08:00
Allopurinol 100 Mg Tablet PO 05/07/25 07:59
DAILY LISA
Cholecalciferol 50 mcg 04/09/25 08:00
Cholecalciferol (Vitamin D3) 50 Mcg Tablet (2,000 Units) PO 05/07/25 07:59
DAILY LISA
Ezetimibe 10 mg 04/09/25 08:00
Ezetimibe (Zetia) 10 Mg Tablet PO 05/07/25 07:59
DAILY LISA
Eplerenone 50 mg 04/09/25 08:00
Eplerenone 25 Mg Tablet PO 05/07/25 07:59
BID LISA
Ferrous Sulfate 325 mg 04/09/25 08:00
Ferrous Sulfate 325 Mg Tablet PO 05/07/25 07:59
Q48H LISA
Finasteride 5 mg 04/09/25 08:00
Finasteride 5 Mg Tablet PO 05/07/25 07:59
DAILY LISA
Furosemide 10 mg 04/09/25 08:00
Furosemide 20 Mg Tablet PO 05/07/25 07:59
DAILY LISA
Levothyroxine Sodium 25 mcg 04/09/25 06:00 04/09/25 06:29
Levothyroxine 25 Mcg Tablet PO 05/07/25 05:59 25 mcg
DAILY@0600 LISA Administration
Multivitamins Therapeutic 1 tablet 04/09/25 08:00
Multivitamin Tablet PO 05/07/25 07:59
DAILY LISA
Sodium Chloride 0 flush 04/08/25 23:00
Sodium Chloride 0.9% (Flush) Syringe IV 05/06/25 22:59
PER PROTOCOL LISA
Terazosin HCl 2 mg 04/08/25 23:00 04/08/25 22:37
Terazosin 1 Mg Capsule PO 05/06/25 22:59 2 mg
HS LISA Administration
Vitamin B Complex/Vitamin C 1 caplet 04/09/25 08:00
Vitamin B Complex With Vitamin C Caplet PO 05/07/25 07:59
DAILY LISA
Home Medications
�Medication �Instructions �Recorded
allopurinol 100 mg tablet 100 mg PO DAILY Gout 05/11/11
cholecalciferol (vitamin D3) 50 50 mcg PO DAILY Supplement 04/23/23
mcg (2,000 unit) tablet
ezetimibe 10 mg tablet 10 mg PO DAILY High Cholesterol 04/23/23
finasteride 5 mg tablet 5 mg PO DAILY prostate issue 04/23/23
furosemide 20 mg tablet 10 mg PO DAILY Fluid 04/23/23
Retention/Swelling
levothyroxine 25 mcg tablet 25 mcg PO DAILY Thyroid 04/23/23
therapeutic multivitamin 1 tab PO DAILY Supplement 04/23/23
vitamin K2 100 mcg capsule 100 mcg PO DAILY Supplement 04/23/23
nintedanib 100 mg capsule (Ofev) 100 mg PO Q12H Lung/Breathing 01/22/24
Issues
terazosin 2 mg capsule 2 mg PO HS Urinary Issue 01/22/24
vitamin B complex 1 tab PO DAILY Supplement 01/22/24
eplerenone 50 mg tablet 50 mg PO BID 04/08/25
ferrous sulfate 325 mg (65 mg 325 mg PO Q48H Supplement 04/08/25
iron) tablet
[2025-04-09] MEDS: ZETIA 10 MG PO (09:05)
[2025-04-09] MEDS: PROSCAR 5 MG PO (09:05)
[2025-04-09] MEDS: B COMPLEX w/VITAMIN C 1 CAPLET PO (09:05)
[2025-04-09] MEDS: ZYLOPRIM 100 MG PO (09:05)
[2025-04-09] MEDS: THERAGRAN 1 TABLET PO (09:05)
[2025-04-09] MEDS: LASIX 10 MG PO (09:06)
[2025-04-09] MEDS: VITAMIN D3 (cholecalciferol) 50 MCG PO (09:06)
[2025-04-09] MEDS: FEOSOL 325 MG PO (09:06)
[2025-04-09 09:57] LABS: Hematocrit 38.5 % (39.0-52.0); Hemoglobin 12.9 g/dL (13.0-18.0); Mean Corp Hgb Conc. 33.5 g/dL (33.0-37.0); Mean Corpuscular Volume 92.8 fL (80.0-94.0); Nucleated Red Blood Cells % 0 % (-); Platelet Count 167 10^3/uL (130-400); Red Cell Dist. Width 12.8 % (11.5-14.5)
[2025-04-09 10:26] VITALS: BP 149/95; PULSE 94; O2SAT 94; O2SAT 96
[2025-04-09 10:27] LABS: ALT (SGPT) 27 U/L (0-50); AST (SGOT) 36 U/L (17-59); Albumin 3.7 g/dl (3.5-5.0); Alkaline Phosphatase 110 U/L (38-126); Blood Urea Nitrogen 20 mg/dl (9-20); Calcium 9.2 mg/dl (8.4-10.2); Carbon Dioxide 37 mmol/L (22-30); Chloride 99 mmol/L (98-107); Estimated Creatinine Clearance 82 ml/min; Glucose 81 mg/dl (70-99); HDL Cholesterol 55 mg/dl; LDL Cholesterol, Calculated 84 mg/dl; Potassium 4.4 mmol/L (3.5-5.1); Sodium 139 mmol/L (135-145); Total Protein 7.0 g/dl (6.3-8.2); Very Low Density Lipoprotein 13 mg/dl (0-30); eGFR > 60.00
[2025-04-09 11:03] LABS: Glycohemoglobin (HgbA1c) 5.6 % (4.0-5.9)
[2025-04-09 11:06] VITALS: BP 140/82
[2025-04-09 16:43] VITALS: BP 105/66
--- NOTE | 2025-04-09 16:49 | CM ---
Alert awake oriented patient who lives with his Opal in a 3 story home with 2 step to enter and 13 steps to bed and bathroom with stair glide. He is independent in all activities of daily living.He uses oxygen from [employer] He was offered VN
he declined need.Katrina explained to pt and . Pt declined to sign.
No VN hx / No SNF history
[facility]
PCP DR Saldaña
PLAN Home Declined VN
[2025-04-09 20:07] VITALS: BP 128/78
[2025-04-09] MEDS: HYTRIN 2 MG PO (21:47)
[2025-04-10 00:24] VITALS: BP 131/69
[2025-04-10 03:47] VITALS: BP 120/75
[2025-04-10 06:00] VITALS: BMI 31.2
[2025-04-10] MEDS: SYNTHROID 25 MCG PO (06:21)
[2025-04-10 07:19] LABS: Hematocrit 38.6 % (39.0-52.0); Hemoglobin 12.4 g/dL (13.0-18.0); Mean Corp Hgb Conc. 32.1 g/dL (33.0-37.0); Mean Corpuscular Volume 94.8 fL (80.0-94.0); Platelet Count 176 10^3/uL (130-400); Red Cell Dist. Width 12.9 % (11.5-14.5)
[2025-04-10 07:43] LABS: Blood Urea Nitrogen 21 mg/dl (9-20); Calcium 9.1 mg/dl (8.4-10.2); Carbon Dioxide 35 mmol/L (22-30); Chloride 98 mmol/L (98-107); Estimated Creatinine Clearance 74 ml/min; Glucose 95 mg/dl (70-99); Potassium 3.8 mmol/L (3.5-5.1); Sodium 137 mmol/L (135-145); eGFR > 60.00
--- NOTE | 2025-04-10 08:25 | W.PN.HOSP.TC ---
Addendum entered and electronically signed by Celia Louis MD 04/10/25 15:36:
I saw and evaluated the patient independently. I reviewed and discussed the resident�s note and agree with findings and plan as documented by Dr. Farmer.
GENERAL: well developed, well nourished, male in no apparent distress
HEENT: NC/AT--right eye with ptosis and mydriasis--6L O2
HEART: regular rate and rhythm, +S1, +S2
LUNGS : coarse crackles bilaterally
ABDOM: soft, nontender, nondistended, + bowel sounds
EXT: no cyanosis, clubbing, or edema
NEUROLOGIC: grossly intact
acute onset of diplopia--due to acute CN III palsy--? from brainstem stroke, myasthenia, lyme, syphilis, etc--apprec neuro--CT head, CTA WNL--MRI/MRA no acute findings--for orbital MRIs--cont DAPT x 21 days with atorvastatin--eye patch--PT/OT
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 Rogers at [facility] is on oral OFEV 100 mg every 12 hours (not on formulary here)- cont baseline 6 L nasal cannula oxygen at rest 10 to 12 L with
exertion-- concerned that his sats can drop to 70% with any movement even at home--apprec pulmonary
Essential HTN- Eplerenone 50 mg twice daily- furosemide 10mg PO daily
HLD- Continue ezetimibe 10 mg daily- lipid panel (LDL 84, triglycerides 66)--atorvastatin recommended by neuro
Pulm HTN, likely type 3- likely secondary to ILD
Hypothyroidism- levothyroxine 25 mcg PO daily
Diverticular GI bleed with blood loss anemia proximal sigmoid colon January 2024
BPH- terazosin 2 mg at bedtime, finasteride 5 mg daily
Gout- allopurinol 100 mg daily
DVT proph-- SCDs
code status--FULL CODE
Original Note:
Today's Communication/Plan
-
- DAPT for 21 days
- atorvastatin 40mg
- MRI orbits w/wo contrast for 04/11/2025
- will need ophthalmology follow-up upon discharge
- f/u neurology recommendations
Assessment / Plan
Assessment / Plan
In summary, 79 yo M PMH ILD (8 to 14 L O2 at baseline), HTN, HLD p/w double vision of acute onset.
CN III palsy
- ddx also includes TIA, CVA
- per neurology, could be brainstem stroke. Per Neurology, their exam reports R eye adduction deficit
- other etiologies could include myasthenia gravis but would typically present with bilateral ptosis
- subtle R eye adduction deficit present
- I did not appreciate the inferiorly and laterally directed gaze of R eye, classically associated with CN 3 palsy.
- patient reports that subjectively, diplopia is improving
- CTA Head Neck did not show evidence of vascular occlusion, aneurysm, or dissection (c/f P. comm artery aneurysm classically leads to CN III palsy)
Brain MRI: acute intracranial abnormality.
MRA Head: No MRA evidence for high-grade stenosis or occlusion of the [place]. 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
MRA Neck: No MRA evidence for high-grade stenosis or occlusion of the arterial vasculature in the neck.
- lipid panel unremarkable (LDL 84, triglycerides 66)
- A1c normal (5.6%)
- f/u neurology recommendations: DAPT for 21 day course, and atorvastatin 40mg because LDL not at goal
- per neuro, no explanation for symptoms, hence MRI orbits w/wo contrast for tomorrow because contrast administration must spaced out
- per neuro, will need ophthalmology follow-up upon discharge
- PT/OT consulted
- eye patch ordered via nursing to place
Interstitial Lung disease - oxygen dependent
- follows with Dr. Rogers at [facility] is on oral OFEV 100 mg every 12 hours (not on formulary here)
- cont baseline 6 L nasal cannula oxygen at rest 10 to 12 L with exertion
Essential HTN
- Eplerenone 50 mg twice daily
- furosemide 10mg PO daily
HLD
- Continue ezetimibe 10 mg daily
- lipid panel (LDL 84, triglycerides 66)
- started atorvastatin 40mg
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
- likely secondary to ILD
Chronic issues as below
Hypothyroidism
- levothyroxine 25 mcg PO daily
Diverticular GI bleed with blood loss anemia proximal sigmoid colon January 2024
BPH
- terazosin 2 mg at bedtime, finasteride 5 mg daily
Gout
- allopurinol 100 mg daily
Diet: low cholesterol
DVTppx: SCDs
Anticipated Discharge: 24 - 48 hours
Subjective/Interval History
-
Date of Service: April 10, 2025
MRI today, reports that diplopia not present as much as before
Objective Data
-
Labs:
Laboratory Results
04/10/25
07:07
WBC 9.7
Hgb 12.4 L
Hct 38.6 L
Plt Count 176
Sodium 137
Potassium 3.8
Chloride 98
Carbon Dioxide 35 H
BUN 21 H
Creatinine 1.0
Glucose 95
Calcium 9.1
Brain MRI: acute intracranial abnormality.
MRA Head: No MRA evidence for high-grade stenosis or occlusion of the [place]. 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
MRA Neck: No MRA evidence for high-grade stenosis or occlusion of the arterial vasculature in the neck.
Vital Signs:
Vital Signs
Temp Pulse Resp BP Pulse Ox
97.1 F 81 16 120/75 95
04/10/25 03:47 04/10/25 03:47 04/10/25 03:47 04/10/25 03:47 04/10/25 03:47
I&O
04/09/25 04/10/25 04/11/25
06:59 06:59 06:59
Intake Total 350 / 350
Output Total 650 / 650
Balance -300 / -300
Review of Systems
-
Constitutional: Reports No Symptoms
EENT: Reports No Symptoms Reported
Respiratory: Reports Trouble Breathing
Cardiac: Reports No Symptoms
Abdomen/GI: Reports No Symptoms
Genitourinary: Reports No Symptoms
Musculoskeletal: Reports No Symptoms
Neuro: Reports Other (blurry, double vision)
Physical Exam
-
General: Conversant
HEENT: Normocephalic
Respiratory: Crackles (inspiratory)
Cardiac: Other (no murmurs)
GI: Soft, Nontender and Nondistended
Musculoskeletal: No Edema (trace to 1+ edema)
Neuro: Other (R ptosis, R pupillary dilation but pupillary light reaction intact. subtle right eye adduction deficit present, he is grossly strong in upper and lower extremities, no focal weakness, or no grossly diminished sensation.)
Psych: Calm
[2025-04-10 08:54] VITALS: BP 136/91
[2025-04-10] MEDS: THERAGRAN 1 TABLET PO (09:19)
[2025-04-10] MEDS: PROSCAR 5 MG PO (09:19)
[2025-04-10] MEDS: INSPRA 50 MG PO ×2 (09:19→20:24)
[2025-04-10] MEDS: LASIX PO ×2 (09:19→09:42)
[2025-04-10] MEDS: ZYLOPRIM 100 MG PO (09:19)
[2025-04-10] MEDS: ZETIA 10 MG PO (09:20)
[2025-04-10] MEDS: B COMPLEX w/VITAMIN C 1 CAPLET PO (09:20)
[2025-04-10] MEDS: VITAMIN D3 (cholecalciferol) 50 MCG PO (09:20)
--- NOTE | 2025-04-10 11:48 | CON.PUL ---
Consultation
Consultation Request
Date/Time Consultation Requested: 04/10/25
Date/Time Consultation Performed: 04/10/25
Performing Provider: Memo
Reason for Consultation: History of ILD
Medical History
-
History of Present Illness:
79-year-old male who states yesterday at 2 PM noticed his right eye was blurry having difficulty reading along with vertical diplopia. Patient denies headache, facial droop, rash. He reports he has 20/20 vision since having bilateral cataract
extraction with lens implants 20 years ago however he is having difficulty reading out of his right eye distance in the room. He reports diplopia corrects with 1 eye closed. On exam has right eyelid droop with right pupil 4 mm slight sluggish EOM
upward left pupil equal round reactive to light. Admitted for neurologic work up.
Patient has past medical history of interstitial lung disease follows with Dr. Rogers at [facility] is on oral OFEV and baseline 6 L nasal cannula oxygen at rest 10 to 12 L with exertion. He is currently at baseline settings, no new complaints.
Patient requested pulmonary consult due to his history.
Past Medical History
Past Medical History: Other (see list below)
Social History
Tobacco: Non-smoker
Alcohol: None
Drug: None
Family History
Family History: Reviewed & Not Pertinent
Allergies / Home Medications
Allergies
Allergy/AdvReac Type Severity Reaction Status Date / Time
Sulfa (Sulfonamide Allergy Rash-'years Verified 04/08/25 15:28
Antibiotics) ago'
sulfamethoxazole Allergy Unknown Verified 04/08/25 15:28
trimethoprim Allergy 'patient Verified 04/08/25 15:28
denies'
Home Medications
�Medication �Instructions �Recorded �Confirmed �Last Taken �Type
allopurinol 100 mg tablet 100 mg PO DAILY Gout 05/11/11 04/08/25 04/08/25 History
cholecalciferol (vitamin D3) 50 50 mcg PO DAILY Supplement 04/23/23 04/08/25 04/08/25 History
mcg (2,000 unit) tablet
ezetimibe 10 mg tablet 10 mg PO DAILY High Cholesterol 04/23/23 04/08/25 04/08/25 History
finasteride 5 mg tablet 5 mg PO DAILY prostate issue 04/23/23 04/08/25 04/08/25 History
furosemide 20 mg tablet 10 mg PO DAILY Fluid 04/23/23 04/08/25 04/08/25 History
Retention/Swelling
levothyroxine 25 mcg tablet 25 mcg PO DAILY Thyroid 04/23/23 04/08/25 04/08/25 History
therapeutic multivitamin 1 tab PO DAILY Supplement 04/23/23 04/08/25 04/08/25 History
vitamin K2 100 mcg capsule 100 mcg PO DAILY Supplement 04/23/23 04/08/25 04/08/25 History
nintedanib 100 mg capsule (Ofev) 100 mg PO Q12H Lung/Breathing 01/22/24 04/08/25 04/07/25 History
Issues
terazosin 2 mg capsule 2 mg PO HS Urinary Issue 01/22/24 04/08/25 04/07/25 History
vitamin B complex 1 tab PO DAILY Supplement 01/22/24 04/08/25 04/08/25 History
eplerenone 50 mg tablet 50 mg PO BID 04/08/25 04/08/25 04/08/25 History
ferrous sulfate 325 mg (65 mg 325 mg PO Q48H Supplement 04/08/25 04/08/25 Unknown History
iron) tablet
Review of Systems
Vitals / Labs / Diagnostic Testing
Vital Signs
Temp Pulse Resp BP Pulse Ox
98.4 F 89 20 136/91 96
04/10/25 08:54 04/10/25 08:54 04/10/25 08:54 04/10/25 08:54 04/10/25 08:54
Lab Data
04/10/25 07:07
04/10/25 07:07
Diagnostic Testing:
Physical Exam
-
HEENT: Normocephalic, Anicteric and Moist Mucous Membranes
Cardiovascular: S1/S2 and Regular Rhythm
Respiratory: Rales and Non-Labored Respirations
GI: Soft, Non Distended and Non Tender
Neurology: Awake, Alert, Oriented and No Motor Deficits
Skin: Warm, Dry and Good Color
General: Comfortable and Other (NAD)
Assessment
-
79-year-old male who states yesterday at 2 PM noticed his right eye was blurry having difficulty reading along with vertical diplopia. Patient denies headache, facial droop, rash. He reports he has 20/20 vision since having bilateral cataract
extraction with lens implants 20 years ago however he is having difficulty reading out of his right eye distance in the room. He reports diplopia corrects with 1 eye closed. On exam has right eyelid droop with right pupil 4 mm slight sluggish EOM
upward left pupil equal round reactive to light. Admitted for neurologic work up.
Patient has past medical history of interstitial lung disease follows with Dr. Rogers at [facility] is on oral OFEV and baseline 6 L nasal cannula oxygen at rest 10 to 12 L with exertion. Patient requested pulmonary consult due to his history.
ILD
Chronic hypoxic respiratory failure
Change in vision
Conditions present [employer]ISTANT
Restrictive lung disease/Interstitial lung disease
[facility], Dr. Keshia Mendosa, [facility]
HTN
HYPOTHYROIDISM
Vitamin D deficiency
GOUT
HYPERLIPIDEMIA
Chronic multiple small pulmonary nodules
Basal skin cell cancer-surgery
DJD
Cataract surgery
Cholecystectomy and appendectomy
RBBB
Obesity
BPH
Diverticulosis
History of GI bleed
Plan
Patient is currently on his baseline O2 settings which include 6 L at rest and 10 to 12 L with exertion
He has not deviated from his baseline settings and denies any new complaints
His was worried that the hospital would not be able to accommodate his 'acute' respiratory issues
Prior history of lung disease is noted including chronic ILD on Ofev
He follows with a block feeder at [facility]
Prior available records are reviewed but he does receive most of his care there
He has no recent PFTs for me to review
We discussed holding his ILD treatments while inpatient and resuming at discharge
He is admitted for change in vision and is undergoing neurologic workup
Awaiting MRI
We will defer to care team for further management
Weight loss measures recommended
Obesity likely contributing to respiratory symptoms
At risk for CHAVA, outpatient sleep study would be recommended
Will need outpatient pulmonary follow-up PFTs and 6MWT as scheduled/routine
Reviewed with patient and
If workup for his vision disturbance is negative, can assess for discharge planning
We have no new recommendations in regards to his lung disease
Can see again as needed
Diagnostic Data
Chest X-Ray:
CT Scan: CHEST 2022-. Peripheral reticular interstitial thickening, most pronounced at the lung bases, extending into the upper lung zones along the periphery of each lung. Mild bibasilar traction bronchiectasis. Bibasilar honeycombing, right
greater than left. Findings are consistent with interstitial fibrosis, usual interstitial pneumonia type.
2. Mild coronary arterial calcification, and mild calcification of the aortic valve. Please correlate with symptoms of and risk factors for coronary artery and aortic valvular disease, with further workup as clinically appropriate..
Echo: 02/13/23- Estimated ejection fraction is 55-60%. No regional wall motion abnormalities are seen. Normal right ventricular size and function. Mild aortic stenosis; peak/mean gradients 27/14 mmHg, calculated JUSTIN is 1.6cm2. Mild tricuspid
regurgitation. Estimated pulmonary artery pressure of 40-45 mmHg. No significant change since the prior study of 10/09/2020.
PFT's: 2015- FVC is 2.89 or 64%, FEV1 is 2.45 or 73%, Ratio of 88. TLC is 4.96 or 69%, DLCO is 15.39 or 55% predicted
Impression: Moderate Restrictive Lung Disease with moderate gas exchange defect, progressive when compared to 2010.
Reports and relevant images were personally reviewed.
Total time spent on this consultation __55__ minutes which includes review of history, physical exam, medications, laboratory data, personal review of imaging, extensive review of outpatient records, discussion with care team and respiratory therapy.
[2025-04-10 16:11] VITALS: BP 138/87
--- NOTE | 2025-04-10 16:48 | W.PN.NEURO.1 ---
Today's Communication / Plan
-
Today, he thinks that he is much better and diplopia on leftward gaze is almost resolved. Also the ptosis of the right eyelid is much less today as compared to yesterday. Today, the adduction of the right eye is much better than yesterday and
there is a subtle right eye adduction deficit that remains today.
. 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 The CT of the head and CTA of head and neck were unremarkable.
. MRI of the brain does not show acute intracranial abnormality.
. MRA of Head and neck are unremarkable.
. MRI of orbits with and without contrast is pending.
. Aspirin 81 mg daily and Plavix 75 mg daily.
. Atorvastatin 40 mg daily.
. Ophthalmology clinic appointment as soon as possible after discharge.
Subjective/Objective
Subjective Data
Date of Service: April 10, 2025
79 years old male with a past medical history of hypertension and interstitial lung disease on 8 to 14 L NC at baseline presenting to the emergency department for double vision. Patient reports around 2 PM on 04/07/2025, he was driving and acutely
noticed double vision. The double vision became worse on the leftward gaze. Patient otherwise denies any changes in his speech, weakness or numbness to extremities. Patient denies any history of stroke. Denies any recent fall or trauma. He is
not on any anticoagulation. He notes the double vision improves when he closes one eye. He denies additional acute medical complaints.
Today, he thinks that he is much better and diplopia on leftward gaze is almost resolved. Also the ptosis of the right eyelid is much less today as compared to yesterday. Today, the adduction of the right eye is much better than yesterday and
there is a subtle right eye adduction deficit that remains today.
. 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 The CT of the head and CTA of head and neck were unremarkable.
. MRI of the brain does not show acute intracranial abnormality.
. MRA of Head and neck are unremarkable.
. MRI of orbits with and without contrast is pending.
. Aspirin 81 mg daily and Plavix 75 mg daily.
. Atorvastatin 40 mg daily.
. Ophthalmology clinic appointment as soon as possible after discharge.
Objective Data
Vital Signs
Temp Pulse Resp BP Pulse Ox
36.9 C 97 20 138/87 97
04/10/25 16:11 04/10/25 16:11 04/10/25 16:11 04/10/25 16:11 04/10/25 16:11
Lab Results
04/10/25 07:07
04/10/25 07:07
Sodium 137 mmol/L (135-145) 04/10/25 07:07
Potassium 3.8 mmol/L (3.5-5.1) 04/10/25 07:07
BUN 21 mg/dl (9-20) H 04/10/25 07:07
Glucose 95 mg/dl (70-99) 04/10/25 07:07
Calcium 9.1 mg/dl (8.4-10.2) 04/10/25 07:07
LDL Cholesterol, Calc 84 mg/dl 04/09/25 08:38
Patient Allergies
Sulfa (Sulfonamide Antibiotics) Allergy (Verified 04/08/25 15:28)
Rash-'years ago'
sulfamethoxazole Allergy (Verified 04/08/25 15:28)
Unknown
trimethoprim Allergy (Verified 04/08/25 15:28)
'patient denies'
Medications
-
Active Medications
Generic Name Dose Route Start Last Admin
Trade Name Freq PRN Reason Stop Dose Admin
Acetaminophen 650 mg 04/08/25 22:06
Acetaminophen 325 Mg Tablet PO 05/06/25 22:05
Q4HPRN PRN
mild pain/[place]/temp> 100.4F
Allopurinol 100 mg 04/09/25 08:00 04/10/25 09:19
Allopurinol 100 Mg Tablet PO 05/07/25 07:59 100 mg
DAILY LISA Administration
Aspirin 81 mg 04/10/25 09:00 04/10/25 09:42
Aspirin 81 Mg Chewable Tablet PO 05/08/25 08:59 Not Given
DAILY LISA
Atorvastatin Calcium 40 mg 04/10/25 18:00
Atorvastatin (Lipitor) 40 Mg Tablet PO 05/08/25 17:59
QPM LISA
Cholecalciferol 50 mcg 04/09/25 08:00 12 09:20
Cholecalciferol (Vitamin D3) 50 Mcg Tablet (2,000 Units) PO 05/07/25 07:59 50 mcg
DAILY LISA Administration
Clopidogrel Bisulfate 75 mg 04/10/25 09:00 12 09:42
Clopidogrel 75 Mg Tablet PO 05/08/25 08:59 Not Given
DAILY LISA
Ezetimibe 10 mg 04/09/25 08:00 04/10/25 09:20
Ezetimibe (Zetia) 10 Mg Tablet PO 05/07/25 07:59 10 mg
DAILY LISA Administration
Eplerenone 50 mg 04/09/25 08:00 04/10/25 09:19
Eplerenone 25 Mg Tablet PO 05/07/25 07:59 50 mg
BID LISA Administration
Ferrous Sulfate 325 mg 04/09/25 08:00 04/09/25 09:06
Ferrous Sulfate 325 Mg Tablet PO 05/07/25 07:59 325 mg
Q48H LISA Administration
Finasteride 5 mg 04/09/25 08:00 04/10/25 09:19
Finasteride 5 Mg Tablet PO 05/07/25 07:59 5 mg
DAILY LISA Administration
Furosemide 10 mg 04/09/25 08:00 12 09:42
Furosemide 20 Mg Tablet PO 05/07/25 07:59 Not Given
DAILY LISA
Levothyroxine Sodium 25 mcg 04/09/25 06:00 12/07/25 06:21
Levothyroxine 25 Mcg Tablet PO 05/07/25 05:59 25 mcg
DAILY@0600 LISA Administration
Multivitamins Therapeutic 1 tablet 04/09/25 08:00 04/10/25 09:19
Multivitamin Tablet PO 05/07/25 07:59 1 tablet
DAILY LISA Administration
Sodium Chloride 0 flush 04/08/25 23:00
Sodium Chloride 0.9% (Flush) Syringe IV 05/06/25 22:59
PER PROTOCOL LISA
Terazosin HCl 2 mg 04/08/25 23:00 04/09/25 21:47
Terazosin 1 Mg Capsule PO 05/06/25 22:59 2 mg
HS LISA Administration
Vitamin B Complex/Vitamin C 1 caplet 04/09/25 08:00 04/10/25 09:20
Vitamin B Complex With Vitamin C Caplet PO 05/07/25 07:59 1 caplet
DAILY LISA Administration
Home Medications
�Medication �Instructions �Recorded
allopurinol 100 mg tablet 100 mg PO DAILY Gout 05/11/11
cholecalciferol (vitamin D3) 50 50 mcg PO DAILY Supplement 04/23/23
mcg (2,000 unit) tablet
ezetimibe 10 mg tablet 10 mg PO DAILY High Cholesterol 04/23/23
finasteride 5 mg tablet 5 mg PO DAILY prostate issue 04/23/23
furosemide 20 mg tablet 10 mg PO DAILY Fluid 04/23/23
Retention/Swelling
levothyroxine 25 mcg tablet 25 mcg PO DAILY Thyroid 04/23/23
therapeutic multivitamin 1 tab PO DAILY Supplement 04/23/23
vitamin K2 100 mcg capsule 100 mcg PO DAILY Supplement 04/23/23
nintedanib 100 mg capsule (Ofev) 100 mg PO Q12H Lung/Breathing 01/22/24
Issues
terazosin 2 mg capsule 2 mg PO HS Urinary Issue 01/22/24
vitamin B complex 1 tab PO DAILY Supplement 01/22/24
eplerenone 50 mg tablet 50 mg PO BID 04/08/25
ferrous sulfate 325 mg (65 mg 325 mg PO Q48H Supplement 04/08/25
iron) tablet
[2025-04-10 19:00] VITALS: BP 131/89
[2025-04-10] MEDS: HYTRIN 2 MG PO (20:40)
[2025-04-10 23:00] VITALS: BP 119/73
[2025-04-11 03:00] VITALS: BP 113/69
[2025-04-11 05:12] VITALS: BMI 31.3
[2025-04-11] MEDS: SYNTHROID 25 MCG PO (07:25)
[2025-04-11 07:40] VITALS: BP 127/90
--- NOTE | 2025-04-11 07:43 | W.PN.HOSP.TC ---
Today's Communication/Plan
-
- discharge today
Assessment / Plan
Assessment / Plan
In summary, 79 yo M PMH ILD (8 to 14 L O2 at baseline), HTN, HLD p/w double vision of acute onset.
CN III palsy
- ddx also includes TIA, CVA
- per neurology, could be brainstem stroke. Per Neurology, their exam reports R eye adduction deficit
- other etiologies could include myasthenia gravis but would typically present with bilateral ptosis. Infectious etiologies of lyme can be worked up outpatient
- subjectively reports symptoms are much improved; per neuro note, they also agree with significant improvement
- Imaging work up thus far unremarkable
- CTA Head Neck did not show evidence of vascular occlusion, aneurysm, or dissection (c/f P. comm artery aneurysm classically leads to CN III palsy)
- Brain MRI: acute intracranial abnormality.
- MRA Head: No MRA evidence for high-grade stenosis or occlusion of the [place]. 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
- MRA Neck: No MRA evidence for high-grade stenosis or occlusion of the arterial vasculature in the neck.
Labs unremarkable
- lipid panel unremarkable (LDL 84, triglycerides 66)
- A1c normal (5.6%)
- neurology recommends DAPT; however, patient is on Ofev (not on formulary here) for ILD which carries significant bleeding interaction risk with aspirin and plavix. Neuro is recommending only aspirin if possible, but patient is not comfortable with
that since he experienced a GI bleed when he started Ofev some years ago.
- our recommendation is for him to do aspirin monotherapy for 21 days, however, it is at the patient's discretion.
- regarding statin, he experienced muscle myalgias some years ago and is on ezetimibe. Neuro is okay with continuing ezetimibe
- patient reports he already has an ophthalmology appointment scheduled for Friday
- continue eye patch
Interstitial Lung disease - oxygen dependent
- follows with Dr. Rogers at [facility] is on oral OFEV 100 mg every 12 hours (not on formulary here)
- cont baseline 6 L nasal cannula oxygen at rest 10 to 12 L with exertion
Essential HTN
- Eplerenone 50 mg twice daily
- furosemide 10mg PO daily
HLD
- Continue ezetimibe 10 mg daily
- lipid panel (LDL 84, triglycerides 66)
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
- likely secondary to ILD
Chronic issues as below
Hypothyroidism
- levothyroxine 25 mcg PO daily
Diverticular GI bleed with blood loss anemia proximal sigmoid colon January 2024
BPH
- terazosin 2 mg at bedtime, finasteride 5 mg daily
Gout
- allopurinol 100 mg daily
Diet: low cholesterol
DVTppx: SCDs
Anticipated Discharge: Today
Subjective/Interval History
-
Date of Service: April 11, 2025
feels that diplopia is improving
Objective Data
-
Labs:
Laboratory Results
04/11/25
07:33
WBC Pending
Hgb Pending
Hct Pending
Plt Count Pending
Sodium Pending
Potassium Pending
Chloride Pending
Carbon Dioxide Pending
BUN Pending
Creatinine Pending
Glucose Pending
Calcium Pending
MRI ORBITS:
Coronal and sagittal postcontrast reconstructions of the orbits were provided. Coronal and axial T2 3-D Drive sequences of the orbits were also evaluated.
No intraorbital mass. No abnormal postcontrast enhancement. Slight symmetric CSF distention of the bilateral optic nerve sheaths, which is nonspecific but can be associated with papilledema and elevated intracranial pressure. However, no appreciable
flattening or bulging of the optic nerve heads, which is a more specific sign for papilledema. Bilateral ocular lens implants. The bilateral globes are otherwise unremarkable. The extraocular muscles are unremarkable. The optic chiasm and optic
nerve tracts are unremarkable. The bilateral lacrimal glands are unremarkable
Vital Signs:
Vital Signs
Temp Pulse Resp BP Pulse Ox
98.4 F 76 18 113/69 98
04/11/25 03:00 04/11/25 03:00 04/11/25 03:00 04/11/25 03:00 04/11/25 03:00
I&O
04/10/25 04/11/25 04/12/25
06:59 06:59 06:59
Intake Total 350 / 350
Output Total 650 / 650 600 / 600
Balance -300 / -300 -600 / -600
Review of Systems
-
Constitutional: Reports No Symptoms
EENT: Reports No Symptoms Reported
Respiratory: Reports Trouble Breathing
Cardiac: Reports No Symptoms
Abdomen/GI: Reports No Symptoms
Genitourinary: Reports No Symptoms
Musculoskeletal: Reports No Symptoms
Neuro: Reports Other (blurry, double vision but improving)
Physical Exam
-
General: Conversant
HEENT: Normocephalic
Respiratory: Crackles (inspiratory)
Cardiac: Other (no murmurs)
GI: Soft, Nontender and Nondistended
Musculoskeletal: No Edema (trace to 1+ edema)
Neuro: Other (R ptosis (improved), pupillary light reaction intact. subtle right eye adduction deficit present, he is grossly strong in upper and lower extremities, no focal weakness, or no grossly diminished sensation.)
Psych: Calm
[2025-04-11 08:34] LABS: Hematocrit 41.2 % (39.0-52.0); Hemoglobin 13.4 g/dL (13.0-18.0); Mean Corp Hgb Conc. 32.5 g/dL (33.0-37.0); Mean Corpuscular Volume 95.4 fL (80.0-94.0); Platelet Count 189 10^3/uL (130-400); Red Cell Dist. Width 12.9 % (11.5-14.5)
[2025-04-11] MEDS: FEOSOL 325 MG PO (08:52)
[2025-04-11] MEDS: B COMPLEX w/VITAMIN C 1 CAPLET PO (08:52)
[2025-04-11] MEDS: ZYLOPRIM 100 MG PO (08:53)
[2025-04-11] MEDS: PROSCAR 5 MG PO (08:53)
[2025-04-11] MEDS: INSPRA 50 MG PO (08:53)
[2025-04-11] MEDS: LASIX 10 MG PO (08:53)
[2025-04-11] MEDS: ZETIA 10 MG PO (08:53)
[2025-04-11] MEDS: VITAMIN D3 (cholecalciferol) 50 MCG PO (08:53)
[2025-04-11] MEDS: THERAGRAN 1 TABLET PO (08:53)
[2025-04-11 09:15] LABS: Blood Urea Nitrogen 20 mg/dl (9-20); Calcium 9.3 mg/dl (8.4-10.2); Carbon Dioxide 34 mmol/L (22-30); Chloride 99 mmol/L (98-107); Estimated Creatinine Clearance 82 ml/min; Glucose 89 mg/dl (70-99); Potassium 4.1 mmol/L (3.5-5.1); Sodium 138 mmol/L (135-145); eGFR > 60.00
--- NOTE | 2025-04-11 09:49 | W.PN.NEURO.1 ---
Addendum entered and electronically signed by Gopal German MD 04/11/25 18:40:
I have seen and examined the patient today along with the nurse practitioner Anastasia Donaldson. I personally performed the medical decision making of this encounter and my assessment and the plan is as given below.
Today the patient feels much better and he says that diplopia on the leftward gaze is almost resolved. Also the ptosis of the right eyelid is much less today as compared to yesterday.
MRI of the orbits was done today:
No intraorbital mass. No abnormal postcontrast enhancement. Slight symmetric CSF distention of the bilateral optic nerve sheaths, which is nonspecific but can be associated with papilledema and elevated intracranial pressure. However, no appreciable
flattening or bulging of the optic nerve heads, which is a more specific sign for papilledema. Bilateral ocular lens implants. The bilateral globes are otherwise unremarkable. The extraocular muscles are unremarkable. The optic chiasm and optic
nerve tracts are unremarkable. The bilateral lacrimal glands are unremarkable.
The patient will follow-up in neurology clinic in 4 weeks.
The patient will also be seen by an manager nursing within a few days.
No driving until formal visual field examination is done by an manager nursing and he is cleared to drive by both the manager nursing and the neurologist.
The patient was advised to take both aspirin and Plavix however he does not want to take Plavix and says that he will likely take aspirin. He will also be on atorvastatin 40 mg daily.
Original Note:
Today's Communication / Plan
-
-Aspirin 81 mg daily and Plavix 75 mg daily.
-Atorvastatin 40 mg daily.
-will follow up with manager nursing, no driving until cleared by them
Neuro Assessment/Plan
Assessment
79 years old male with a past medical history of hypertension and interstitial lung disease on 8 to 14 L NC at baseline presenting to the emergency department for double vision. Patient reports around 2 PM on 04/07/2025, he was driving and acutely
noticed double vision. The double vision became worse on the leftward gaze. Patient otherwise denies any changes in his speech, weakness or numbness to extremities. Patient denies any history of stroke. Denies any recent fall or trauma. He is
not on any anticoagulation. He notes the double vision improves when he closes one eye. He denies additional acute medical complaints.
Today, he thinks that he is much better and diplopia on leftward gaze is almost resolved. Also the ptosis of the right eyelid is much less today as compared to yesterday. Today, the adduction of the right eye is much better than yesterday and
there is a subtle right eye adduction deficit that remains today.
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 The CT of the head and CTA of head and neck were unremarkable.
MRI of the brain does not show acute intracranial abnormality.
MRA of Head and neck are unremarkable.
MRI of orbits with and without contrast shows no intraorbital mass. No abnormal postcontrast enhancement. Slight symmetric CSF distention of the bilateral optic nerve sheaths, which is nonspecific but can be associated with papilledema and elevated
intracranial pressure. However, no appreciable flattening or bulging of the optic nerve heads, which is a more specific sign for papilledema. Bilateral ocular lens implants. The bilateral globes are otherwise unremarkable. The extraocular muscles
are unremarkable. The optic chiasm and optic nerve tracts are unremarkable. The bilateral lacrimal glands are unremarkable.
Plan
-Aspirin 81 mg daily and Plavix 75 mg daily
-Atorvastatin 40 mg daily
-will follow up with manager nursing, no driving until cleared by them
All questions encouraged and answered, plan of care discussed with Dr. German and patient
Subjective/Objective
Subjective Data
Date of Service: April 11, 2025
No acute overnight events. Mild ptosis on right. Continues with diplopia with extreme gaze to left but improving.
Objective Data
Vital Signs
Temp Pulse Resp BP Pulse Ox
97.5 F 100 20 127/90 92
04/11/25 07:40 04/11/25 08:53 04/11/25 07:40 04/11/25 08:53 04/11/25 07:40
Lab Results
04/11/25 07:33
04/11/25 07:33
Sodium 138 mmol/L (135-145) 04/11/25 07:33
Potassium 4.1 mmol/L (3.5-5.1) 04/11/25 07:33
BUN 20 mg/dl (9-20) 04/11/25 07:33
Glucose 89 mg/dl (70-99) 04/11/25 07:33
Calcium 9.3 mg/dl (8.4-10.2) 04/11/25 07:33
LDL Cholesterol, Calc 84 mg/dl 04/09/25 08:38
Patient Allergies
Sulfa (Sulfonamide Antibiotics) Allergy (Verified 04/08/25 15:28)
Rash-'years ago'
sulfamethoxazole Allergy (Verified 04/08/25 15:28)
Unknown
trimethoprim Allergy (Verified 04/08/25 15:28)
'patient denies'
Data Reviewed
-
CT-A: Report Reviewed and Image Reviewed
MRI Head: Report Reviewed and Image Reviewed
MRA Head: Report Reviewed and Image Reviewed
MRA Neck: Report Reviewed and Image Reviewed
Medical Test Reports: Report Reviewed
Labs: Report Reviewed
Lipid Profile: Report Reviewed
Reviewed with: Physician and Patient
Old Records: Summarized
[2025-04-11 11:06] VITALS: BP 131/84
--- NOTE | 2025-04-11 11:54 | W.DCSUMMARY ---
Documented by User: Cyril Farmer MD, Resident 04/11/25 13:46
Discharge Summary
Discharge Data
Date of Admission: 04/11/25
Date of Discharge: 04/11/25
-
Pending Results: No
Hospital Course
Discharging Physician : Dr. Camron Saha; Dr. Cyril Farmer
Disposition : Home
Primary care physician : Estephania Saldaña
Principal Discharge diagnosis : Diplopia, CN III palsy
Chronic Discharge diagnosis : interstitial lung disease, essential HTN, HLD, hypothyroidism, pulmonary hypertension, BPH, gout
Hospital Course :
79 yo M PMH ILD on 6L O2 at baseline with 10-12 L O2 on exertion, essential HTN, HLD p/w double vision. Patient reports around 2 PM on 04/07/2025, he was driving and acutely noticed double vision. The double vision gets worse on the leftward gaze.
He notes that the symptoms have been constant since onset. reported that the right eyelid seems to be drooping slightly more than usual, and the right pupil seemed different than the left. Patient otherwise denies any changes in his speech,
weakness or numbness to extremities. Patient denies any history of stroke. Denies any recent fall or trauma. He is not on any anticoagulation. He notes the double vision improves when he closes one eye. He denies additional acute medical
complaints.
Over the course of his admission, imaging workup which included CT, CTA, MRI, MRA of brain/neck/head were largely negative. MRI orbits was also largely unremarkable with: 'Slight symmetric CSF distention of the bilateral optic nerve sheaths, which
is nonspecific but can be associated with papilledema and elevated intracranial pressure. However, no appreciable flattening or bulging of the optic nerve heads, which is a more specific sign for papilledema.'
Overall, the patient's clinical exam improved subjectively and objectively.
Per neurology recommendations, DAPT and statin were recommended. However, the patient is on Ofev for ILD, which is a chronic issue, and has an interaction for bleeding risk with aspirin, plavix. Regarding statins, the patient experienced myalgias in
the past. He will continue ezetimibe. After further discussion with dena, aspirin monotherapy is recommended, and the patient has expressed an understanding of the risk/benefits, but will likely choose to decline aspirin monotherapy given his
experiences with Ofev and a severe bleeding episode 2-3 years go.
The patient has been counseled to follow-up with ophthalmology and to not drive until cleared by them.
The following problems were addressed this admission.
Diplopia, CN III palsy
- ddx also includes TIA, CVA
- per neurology, could be brainstem stroke.
- other etiologies could include myasthenia gravis but would typically present with bilateral ptosis. Infectious etiologies of lyme can be worked up outpatient
- subjectively reports symptoms are much improved; per neuro, they also agree with significant improvement
- Imaging work up thus far unremarkable
- CTA Head Neck did not show evidence of vascular occlusion, aneurysm, or dissection (c/f P. comm artery aneurysm classically leads to CN III palsy)
- Brain MRI: acute intracranial abnormality.
- MRA Head: No MRA evidence for high-grade stenosis or occlusion of the [place]. 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
- MRA Neck: No MRA evidence for high-grade stenosis or occlusion of the arterial vasculature in the neck.
Labs unremarkable
- lipid panel unremarkable (LDL 84, triglycerides 66)
- A1c normal (5.6%)
- neurology recommends DAPT; however, patient is on Ofev (not on formulary here) for ILD which carries significant bleeding interaction risk with aspirin and plavix. Neuro is recommending only aspirin if possible, but patient is not comfortable with
that since he experienced a GI bleed when he started Ofev some years ago.
- our recommendation is for him to do aspirin monotherapy for 21 days, however, it is at the patient's discretion.
- regarding statin, he experienced muscle myalgias some years ago and is on ezetimibe. Neuro is okay with continuing ezetimibe
- patient reports he already has an ophthalmology appointment scheduled for Friday
- MRI orbits was retrospectively interpreted based on MRI brain from 04/10/2025 scan.
- continue eye patch
Interstitial Lung disease - oxygen dependent, chronic hypoxemic respiratory failure
- follows with Dr. Rogers at [facility] is on oral OFEV 100 mg every 12 hours (not on formulary here)
- cont baseline 6 L nasal cannula oxygen at rest 10 to 12 L with exertion
Essential HTN
- Eplerenone 50 mg twice daily
- furosemide 10mg PO daily
HLD
- Continue ezetimibe 10 mg daily
- lipid panel (LDL 84, triglycerides 66)
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
- likely secondary to ILD
Chronic issues as below
Hypothyroidism
- levothyroxine 25 mcg PO daily
Diverticular GI bleed with blood loss anemia proximal sigmoid colon January 2024
BPH
- terazosin 2 mg at bedtime, finasteride 5 mg daily
Gout
- allopurinol 100 mg daily
Important imaging findings :
MRI Orbits 04/10/2025 (retrospective addendum)
Please see the addendum on the brain MRI report dated 04/10/2025 for details regarding the orbits.
MRI Brain 04/10/2025
~~REPORT ADDENDUM~~
MRI ORBITS:
Coronal and sagittal postcontrast reconstructions of the orbits were provided. Coronal and axial T2 3-D Drive sequences of the orbits were also evaluated.
No intraorbital mass. No abnormal postcontrast enhancement. Slight symmetric CSF distention of the bilateral optic nerve sheaths, which is nonspecific but can be associated with papilledema and elevated intracranial pressure. However, no appreciable
flattening or bulging of the optic nerve heads, which is a more specific sign for papilledema. Bilateral ocular lens implants. The bilateral globes are otherwise unremarkable. The extraocular muscles are unremarkable. The optic chiasm and optic
nerve tracts are unremarkable. The bilateral lacrimal glands are unremarkable
MRI BRAIN
FINDINGS:
Mild atherosclerosis of the bilateral carotid bifurcations without significant stenosis. The bilateral common carotid, internal carotid, external carotid arteries are patent. No high-grade stenosis or occlusion.
The bilateral vertebral arteries are codominant and patent.
The aortic arch branch vessels are patent.
IMPRESSION:
No MRA evidence for high-grade stenosis or occlusion of the arterial vasculature in the neck.
MRA Head 04/10/2025
FINDINGS:
The anterior and posterior circulation is patent. There is no high-grade stenosis or occlusion. The bilateral middle cerebral artery branch vessels show symmetric signal intensity. Small aneurysm or infundibulum of the anterior communicating artery
measuring 2-3 mm in size (series 301, image 83).
Mild atherosclerosis of the intracranial segments of the bilateral internal carotid arteries without stenosis. A 3 mm aneurysm protrudes from the medial wall of the cavernous left internal carotid artery (series 301, image 57).
The basilar artery is patent. The distal segments of the bilateral vertebral arteries are patent.
IMPRESSION:
No MRA evidence for high-grade stenosis or occlusion of the [place].
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
MRA Neck 04/10/2025
FINDINGS:
Mild atherosclerosis of the bilateral carotid bifurcations without significant stenosis. The bilateral common carotid, internal carotid, external carotid arteries are patent. No high-grade stenosis or occlusion.
The bilateral vertebral arteries are codominant and patent.
The aortic arch branch vessels are patent.
IMPRESSION:
No MRA evidence for high-grade stenosis or occlusion of the arterial vasculature in the neck.
CTA Head/Neck 04/08/2025
Findings:
There are no vascular occlusions observed.
The bilateral common and internal carotid arteries are grossly patent with only mild scattered calcific plaque in the carotid bulbs bilaterally.
Scattered mild calcific plaque involving the cavernous and petrous portions of the bilateral internal carotid arteries with less than 50% stenosis in these regions bilaterally.
Dominant left vertebral artery. The vertebral arteries, basilar artery and basilar artery bifurcation are otherwise normal. The posterior communicating arteries are not visualized on the source images.
The internal carotid artery bifurcations, the middle cerebral artery bifurcation/trifurcation regions and the anterior communicating artery region appears normal. The posterior cerebral arteries appear intact in the visualized segments.
The brain parenchyma demonstrates chronic senescent changes. The ventricles, basal cisterns, and sulci over the convexities are normal.
The orbits and bony calvarium are normal. The visualized paranasal sinuses are unremarkable.
The sella turcica and cavernous sinus regions appear intact. The mastoid air cells are normal.
The fossa of [place] is normal. The parotid space contents and toe sewer space contents appear intact. The parapharyngeal spaces are normal. The submandibular and sublingual space contents appear intact. The submental space is intact.
The epiglottis, aryepiglottic folds, and piriform sinuses are normal. The vallecula appears normal. The larynx and trachea are normal. The esophagus appears intact. The thyroid is unremarkable.
The carotid space contents are normal. There is no deep cervical chain adenopathy observed. The jugulodigastric regions appear intact.
The perivertebral space contents are normal. The supraclavicular regions appear intact. The visualized upper lung zones demonstrate bilateral subpleural fibrotic/inflammatory pneumonitis change. Mild degenerative changes of the cervical spine.
IMPRESSION:
No significant vascular occlusion, aneurysm or dissection.
The visualized upper lung zones demonstrate bilateral subpleural fibrotic/inflammatory pneumonitis change.
Procedure findings :
EKG 04/08/2025
Vent. Rate : 99 BPM Atrial Rate : 99 BPM
P-R Int : 154 ms QRS Dur : 142 ms
QT Int : 390 ms P-R-T Axes : 20 -39 -27 degrees
QTcB Int : 500 ms
NORMAL SINUS RHYTHM
LEFT AXIS DEVIATION
RIGHT BUNDLE BRANCH BLOCK
MINIMAL VOLTAGE CRITERIA FOR LVH, MAY BE NORMAL VARIANT ( R in aVL )
Discharge Plan
-
Patient Disposition: Home (Routine Discharge)
Discharge Diagnosis/Procedures: Diplopia, CN III palsy of R eye, interstitial lung disease, essential HTN, HLD, hypothyroidism, pulmonary hypertension, BPH, gout
Condition: Fair
Diet: Low Cholesterol
Activity: As tolerated
Driving Restrictions: No driving
Referrals:
Gopal German MD [Active, Neurology] - in three to four weeks
Estephania Saldaña MD [Family Provider, Internal Medicine]
Additional Discharge Medication Instructions: Please continue your home medications, you should continue Ofev.
You should NOT drive until evaluation by ophthalmology.
Please follow-up with your primary care doctor within 1 week.
You advised us that you already have ophthalmology follow-up on 04/13/2025.
Please follow-up with neurology in 3-4 weeks.
We are recommending you take aspirin 81mg for 21 days.
You should continue ezetimibe.
You may wear the eye patch for comfort as needed.
Prescriptions:
New
aspirin 81 mg Tablet,Chewable
81 mg PO DAILY Qty: 21 0RF
Continued
allopurinol 100 MG tablet
100 mg PO DAILY
therapeutic multivitamin Tablet
1 tab PO DAILY
levothyroxine 25 mcg Tablet
25 mcg PO DAILY
furosemide 20 mg Tablet
10 mg PO DAILY
finasteride 5 mg Tablet
5 mg PO DAILY
ezetimibe 10 mg Tablet
10 mg PO DAILY
cholecalciferol (vitamin D3) 50 mcg (2,000 unit) Tablet
50 mcg PO DAILY
vitamin K2 100 mcg Capsule
100 mcg PO DAILY
terazosin 2 mg Capsule
2 mg PO HS
vitamin B complex Tablet
1 tab PO DAILY
Ofev 100 mg Capsule
100 mg PO Q12H
Rx Instructions:
on hold due to side efrects
eplerenone 50 mg Tablet
50 mg PO BID
ferrous sulfate 325 mg (65 mg iron) tablet
325 mg PO Q48H
Discharge Orders:
Discharge Patient (As Directed); Ordered 04/11/25
Ordered By: Cyril Farmer
Discharge Date and Time
Print Language: EGYPTIAN

Documented by User: Camron Saha DO 04/11/25 15:04
Discharge Summary
Discharge Data
Date of Admission: 04/08/25
Date of Discharge: 04/11/25
Total time spent discharging patient (in min): 36
Discharge Plan
-
Patient Disposition: Home (Routine Discharge)
Discharge Diagnosis/Procedures: Diplopia, CN III palsy of R eye, interstitial lung disease, essential HTN, HLD, hypothyroidism, pulmonary hypertension, BPH, gout
Condition: Fair
Diet: Low Cholesterol
Activity: As tolerated
Driving Restrictions: No driving
Referrals:
Gopal German MD [Active, Neurology] - in three to four weeks
Estephania Saldaña MD [Family Provider, Internal Medicine]
Additional Discharge Medication Instructions: Please continue your home medications, you should continue Ofev.
You should NOT drive until evaluation by ophthalmology.
Please follow-up with your primary care doctor within 1 week.
You advised us that you already have ophthalmology follow-up on 04/13/2025.
Please follow-up with neurology in 3-4 weeks.
We are recommending you take aspirin 81mg for 21 days.
You should continue ezetimibe.
You may wear the eye patch for comfort as needed.
Prescriptions:
New
aspirin 81 mg Tablet,Chewable
81 mg PO DAILY Qty: 21 0RF
Continued
allopurinol 100 MG tablet
100 mg PO DAILY
therapeutic multivitamin Tablet
1 tab PO DAILY
levothyroxine 25 mcg Tablet
25 mcg PO DAILY
furosemide 20 mg Tablet
10 mg PO DAILY
finasteride 5 mg Tablet
5 mg PO DAILY
ezetimibe 10 mg Tablet
10 mg PO DAILY
cholecalciferol (vitamin D3) 50 mcg (2,000 unit) Tablet
50 mcg PO DAILY
vitamin K2 100 mcg Capsule
100 mcg PO DAILY
terazosin 2 mg Capsule
2 mg PO HS
vitamin B complex Tablet
1 tab PO DAILY
Ofev 100 mg Capsule
100 mg PO Q12H
Rx Instructions:
on hold due to side efrects
eplerenone 50 mg Tablet
50 mg PO BID
ferrous sulfate 325 mg (65 mg iron) tablet
325 mg PO Q48H
Discharge Orders:
Discharge Patient (As Directed); Ordered 04/11/25
Ordered By: Cyril Farmer
Discharge Date and Time
Print Language: EGYPTIAN
[2025-04-11 12:15] VITALS: BP 124/74; PULSE 92; O2SAT 97
--- NOTE | 2025-04-11 14:15 | CM ---
Patient seen at bedside
PT/OT rec outpatient therapy
tt hospitalist for script
TT from [facility] LOC change to inpatient-IMM explained & signed. In chart
PLAN: Home with outpatient PT/OT
to transport
[2025-04-11 14:31] VITALS: BP 127/88
== END 2025-04-11 16:33 | disposition home or self-care (01) | DRG 123 ==
LOC: 3 WEST ACU 08:31
PROVIDERS: Clinical Nurse Specialist Family Health; ADMITTING PHYSICIAN Internal Medicine; ATTENDING PHYSICIAN Internal Medicine; CONSULT PHYSICIAN Internal Medicine; CONSULT PHYSICIAN Psychiatry & Neurology Neurology; EMERGENCY PHYSICIAN Student in an Organized Health Care Education/Training Program; FAMILY PHYSICIAN Internal Medicine
DX: H49.01 Third [oculomotor] nerve palsy, right eye (principal); H47.10 Unspecified papilledema; J96.11 Chronic respiratory failure with hypoxia; H53.2 Diplopia; I10 Essential (primary) hypertension; E03.9 Hypothyroidism, unspecified; N40.0 Benign prostatic hyperplasia without lower urinary tract symptoms; I27.20 Pulmonary hypertension, unspecified; M10.9 Gout, unspecified; E78.5 Hyperlipidemia, unspecified; E66.9 Obesity, unspecified; E55.9 Vitamin D deficiency, unspecified; Z66 Do not resuscitate; H02.401 Unspecified ptosis of right eyelid; H26.9 Unspecified cataract; K57.30 Diverticulosis of large intestine without perforation or abscess without bleeding; M47.812 Spondylosis without myelopathy or radiculopathy, cervical region; Z68.31 Body mass index [BMI] 31.0-31.9, adult; Z79.02 Long term (current) use of antithrombotics/antiplatelets; Z79.82 Long term (current) use of aspirin; Z79.890 Hormone replacement therapy; Z79.899 Other long term (current) drug therapy; Z98.41 Cataract extraction status, right eye; Z98.42 Cataract extraction status, left eye; Z99.81 Dependence on supplemental oxygen
CPT/HCPCS: 70496; 70498; 70543; 70544; 70548; 70553; 80048; 80053; 80061; 83036; 85025; 85027; 93005; 97110; 97162; 97166; 99285; A9585; Q9967